=== PATIENT | female | born 1990 | race Hispanic/Latino ===

== ENCOUNTER 2019-07-06 18:49 | Emergency (ER) | payer SELFPAY ==
--- NOTE | 2019-07-06 20:00 | RAD REPORT ---
EXAM DESCRIPTION: RAD - Ankle Left 3 View - 07/06/2019 7:48 pm CLINICAL HISTORY: PAIN COMPARISON: <Comparisons> FINDINGS: Soft tissue swelling is seen adjacent to the lateral malleolus. No acute fracture or dislo cation seen.
--- NOTE | 2019-07-06 20:35 | ER ---
Nurse's Notes [facility] Name: Jalyn Carver Age: 29 yrs Sex: Female : 1990 Arrival Date: 07/06/2019 Time: 18:50 Bed 30 Private MD: Diagnosis: Sprain of ankle Presentation: 07/06 19:03 Presenting complaint: Rolled left ankle 30 mins ZIPPER TRIMMER, c/o pain 10/10. Unable to bear hb weight. Transition of care: patient was not received from another setting of care. Onset of symptoms was July 06, 2019. Risk Assessment: Do you want to hurt yourself or someone else? Patient reports no desire to harm self or others. Initial Sepsis Screen: Does the patient meet any 2 criteria? No. Patient's initial sepsis screen is negative. Does the patient have a suspected source of infection? No. Patient's initial sepsis screen is negative. Care prior to arrival: None. 19:03 Method Of Arrival: Wheelchair hb 19:03 Acuity: ABDIEL 4 hb Triage Assessment: 20:57 General: Appears in no apparent distress. Behavior is calm, cooperative, appropriate jv1 for age. Pain: Complains of pain in left foot Pain currently is 5 out of 10 on a pain scale. Quality of pain is described as aching. EENT: No deficits noted. Neuro: No deficits noted. Cardiovascular: No deficits noted. Denies chest pain. Respiratory: Airway is patent Respiratory effort is even, unlabored, Breath sounds are clear. GI: No signs and/or symptoms were reported involving the gastrointestinal system. : No signs and/or symptoms were reported regarding the genitourinary system. Derm: No signs and/or symptoms reported regarding the dermatologic system. Musculoskeletal: Capillary refill < 3 seconds, Tenderness present in left foot. 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 - Social history:: Smoking status: Patient/guardian denies using tobacco. - Ebola Screening: : No symptoms or risks identified at this time. Screenin:55 Abuse screen: Denies threats or abuse. Nutritional screening: No deficits noted. jv1 Tuberculosis screening: No symptoms or risk factors identified. Fall Risk Fall in past 12 months (25 points). Sepsis Screening:. Exposure risk/Travel Screening:. Assessment: 20:00 General: Appears in no apparent distress. Behavior is calm, cooperative, appropriate jv1 for age. Pain: Complains of pain in left foot Pain currently is 5 out of 10 on a pain scale. Quality of pain is described as aching. Neuro: No deficits noted. Cardiovascular: No deficits noted. Denies chest pain. Respiratory: Airway is patent Breath sounds are clear bilaterally. GI: Bowel sounds present X 4 quads. : No signs and/or symptoms were reported regarding the genitourinary system. EENT: No signs and/or symptoms were reported regarding the EENT system. Derm: No signs and/or symptoms reported regarding the dermatologic system. Musculoskeletal: Reports pain in left foot. Injury Description: sprain on left foot. 20:30 Reassessment: Patient appears in no apparent distress at this time. jv1 21:00 Reassessment: Patient appears in no apparent distress at this time. No changes from jv1 previously documented assessment. Patient is alert, oriented x 3, equal unlabored respirations, skin warm/dry/pink. Vital Signs: 19:05 BP 113 / 73; Pulse 87; Resp 16; Temp 97.9; Pulse Ox 100% on R/A; Weight 68.04 kg; hb Height 5 ft. 1 in. (154.94 cm); Pain 10/10; 20:00 BP 115 / 80; Pulse 88; Resp 16; Temp 98; Pulse Ox 100% ; Pain 0/10; jv1 21:00 BP 120 / 75; Pulse 89; Resp 18; Temp 98.1; Pulse Ox 100% ; jv1 19:05 Body Mass Index 28.34 (68.04 kg, 154.94 cm) hb ED Course: 18:50 Patient arrived in ED. as 19:04 Triage completed. hb 19:05 Arm band placed on. hb 19:48 Ankle Left 3 View XRAY In Process Unspecified. EDMS 19:50 Ottoniel Robert MD is Attending Physician. gs 20:33 Russell Duncan MD is Referral Physician. gs 20:55 Patient has correct armband on for positive identification. Fall risk band placed. Call jv1 light in reach. Side rails up X 1. Adult w/ patient. 21:00 Crutch training done. jv1 21:06 No provider procedures requiring assistance completed. Patient did not have IV access jv1 during this emergency room visit. Administered Medications: No medications were administered Outcome: 20:34 Discharge ordered by . janett 21:00 Discharge instructions given to patient, significant other, Instructed on discharge jv1 instructions, follow up and referral plans. crutch walking, Demonstrated understanding of instructions, follow-up care, crutch walking. 21:06 Discharged to home ambulatory, with crutches, instructed on how to use the crutches jv1 21:06 Condition: stable 21:19 Patient left the ED. jv1 Signatures: Dispatcher [employer] Ashly Gregg Heather, RN RN Ottoniel Toney MD MD gs Vicente, Joyce, RN RN jv1
--- NOTE | 2019-07-06 20:35 | EDPHYS ---
Physician Documentation [facility] Name: Jalyn Carver Age: 29 yrs Sex: Female : 1990 Arrival Date: 07/06/2019 Time: 18:50 Bed 30 Private MD: ED Physician Ottoniel Robert HPI: 07/06 20:23 This 29 yrs old Female presents to ER via Wheelchair with complaints of Ankle gs Injury. 20:23 The patient presents with an injury. The complaints affect the left ankle. Onset: The gs symptoms/episode began/occurred just prior to arrival. Context: The problem was sustained at home, resulted from a mis-step by the patient, on a floor edge, The mechanism of injury involved eversion of the affected ankle. The patient can partially bear weight on the affected extremity. Associated signs and symptoms: Pertinent negatives: numbness, weakness. Modifying factors: the symptoms are aggravated by weight bearing, movement. Severity of symptoms: At their worst the symptoms were severe, in the emergency department the symptoms are unchanged. The patient has not experienced similar symptoms in the past. 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 - Social history:: Smoking status: Patient/guardian denies using tobacco. - Ebola Screening: : No symptoms or risks identified at this time. ROS: 20:23 All other systems are negative. gs Exam: 20:23 Head/Face: Normocephalic, atraumatic. ENT: Nares patent. No nasal discharge, no gs septal abnormalities noted. Tympanic membranes are normal and external auditory canals are clear. Oropharynx with no redness, swelling, or masses, exudates, or evidence of obstruction, uvula midline. Mucous membranes moist. Neck: Trachea midline, no thyromegaly or masses palpated, and no cervical lymphadenopathy. Supple, full range of motion without nuchal rigidity, or vertebral point tenderness. No Meningismus. Cardiovascular: Regular rate and rhythm with a normal S1 and S2. No gallops, murmurs, or rubs. Normal PMI, no JVD. No pulse deficits. Respiratory: Lungs have equal breath sounds bilaterally, clear to auscultation and percussion. No rales, rhonchi or wheezes noted. No increased work of breathing, no retractions or nasal flaring. Abdomen/GI: Soft, non-tender, with normal bowel sounds. No distension or tympany. No guarding or rebound. No evidence of tenderness throughout. Back: No spinal tenderness. No costovertebral tenderness. Full range of motion. Skin: Warm, dry with normal turgor. Normal color with no rashes, no lesions, and no evidence of cellulitis. Neuro: Awake and alert, GCS 15, oriented to person, place, time, and situation. Cranial nerves II-XII grossly intact. Motor strength 5/5 in all extremities. Sensory grossly intact. Cerebellar exam normal. Normal gait. 20:23 Constitutional: The patient appears alert, awake. 20:23 Musculoskeletal/extremity: Pulses: are normal with no appreciated deficits, Sensation intact. Joints: pain at rest, painful range of motion, swelling, tenderness. Vital Signs: 19:05 BP 113 / 73; Pulse 87; Resp 16; Temp 97.9; Pulse Ox 100% on R/A; Weight 68.04 kg; hb Height 5 ft. 1 in. (154.94 cm); Pain 10/10; 20:00 BP 115 / 80; Pulse 88; Resp 16; Temp 98; Pulse Ox 100% ; Pain 0/10; jv1 21:00 BP 120 / 75; Pulse 89; Resp 18; Temp 98.1; Pulse Ox 100% ; jv1 19:05 Body Mass Index 28.34 (68.04 kg, 154.94 cm) hb MDM: 20:04 Patient medically screened. gs 20:23 Differential diagnosis: fracture, sprain. Data reviewed: vital signs, nurses notes, radiologic studies. Response to treatment: the patient's symptoms have mildly improved after treatment, and as a result, I will discharge patient. 07/06 19:03 Order name: Ankle Left 3 View XRAY; Complete Time: 20:04 hb Administered Medications: No medications were administered Disposition: 07/06/19 20:34 Discharged to Home. Impression: Sprain of ankle. - Condition is Stable. - Discharge Instructions: Ankle Sprain, Form - Return To Work. - Medication Reconciliation Form, Thank You Letter, Antibiotic Education, Prescription Opioid Use, Work release form form. - Follow up: Russell Duncan MD; When: 2 - 3 days; Reason: Re-evaluation by your physician. Signatures: Dispatcher [employer] EDMS Jannet Santiago, RN RN Ottoniel Robert MD MD Barbara De Leon RN RN jv1 Corrections: (The following items were deleted from the chart) 21:19 20:34 07/06/2019 20:34 Discharged to Home. Impression: Sprain of ankle. Condition is jv1 Stable. Forms are Medication Reconciliation Form, Thank You Letter, Antibiotic Education, Prescription Opioid Use. Follow up: Dr. Russell Duncan; When: 2 - 3 days; Reason: Re-evaluation by your physician. gs
[2019-07-06 22:32] VITALS: O2SAT 100
[2019-07-06 22:36] VITALS: BP 120/75; TEMP 98.1
== END 2019-07-06 21:19 | disposition home or self-care (01) ==
LOC: ER 18:49
DX: S93.402A Sprain of unspecified ligament of left ankle, initial encounter (principal); X58.XXXA Exposure to other specified factors, initial encounter; Y93.9 Activity, unspecified; Y92.009 Unspecified place in unspecified non-institutional (private) residence as the place of occurrence of the external cause
CPT/HCPCS: 99283

== ENCOUNTER 2020-04-29 14:19 | Emergency (ER) | payer SELFPAY ==
--- OUTSIDE RECORDS SUMMARY | 2020-04-29 14:41 | XMS REPORT | Continuity of Care Document ---
:1990 Author Organization [facility] t Address [address] [place] [address] Care Team Providers Name Role Phone Unavailable Unavailable Unavailable Problems Condition Condition Condition Status Onset Resolution Last Treating Co mments Source Name Details Category Date Date Treatment Clinician Date Sprain of Sprain of Diagnosis Active [facility] anterior [facility] talofibula talofibula Me moria r ligament r ligament l of left of left [facility] ankle, ankle, ent initial initial Clinics encounter encounter Acute left Acute left Diagnosis Active [facility] ankle pain ankle pain Shae [facility] ent Clinics Allergies, Adverse Reactions, Alerts This patient has no known allergies or adverse reactions. Medications Ordered Filled Start Stop Current Ordering Indication Dosage Frequency Signature Comments Components Source Medication Medication Date Date Medication? Clinician (SIG) Name Name ibuprofen ibuprofen Yes Russell not [facility] defined [facility] Clinics Procedures This patient has no known procedures. Encounters Start End Encounter Admission Attending Care Care Encounter Source Date/Time Date/Time Type Type Clinicians Facility Department ID 2019-07-12 2019-07-12 Out[facility] [place] [id number] [facility] [address] 08:30:00 08:30:00 [facility] Clinics Results This patient has no known results.
--- NOTE | 2020-04-29 15:28 | RAD REPORT ---
EXAM DESCRIPTION: CT - Head Brain Wo Cont - 04/29/2020 3:21 pm CLINICAL HISTORY: SANCHEZ'S PALSY Headache, drowsiness COMPARISON: No comparisons TECHNIQUE: All CT scans are performed using dose optimization technique as appropriate and may inclu de automated exposure control or mA/KV adjustment according to patient size. FINDINGS: No intracranial hemorrhage, hydrocephalus or extra-axial fluid collection.No areas of brai n edema or evidence of midline shift. The paranasal sinuses and mastoids are clear. The calvarium is intact. IMPRESSION: No acute intracranial abnormality.
--- NOTE | 2020-04-29 16:12 | ER ---
Nurse's Notes [facility] Name: Jalyn Carver Age: 30 yrs Sex: Female : 1990 Arrival Date: 04/29/2020 Time: 14:21 Bed 16 Private MD: Diagnosis: Alexis's palsy Presentation: 04/29 14:26 Chief complaint: Patient states: Started Wednesday, numbness and drooping on R side of ca1 face. R eye tearing and not closing all the way. Pain on R ear. Denies dysphagia. History Alexis's Palsy 4 years ago. Coronavirus screen: Client denies travel out of the [place] in the last 14 days. At this time, the client does not indicate any symptoms associated with coronavirus-19. Ebola Screen: Patient negative for fever greater than or equal to 101.5 degrees Fahrenheit, and additional compatible Ebola Virus Disease symptoms Patient denies exposure to infectious person. Patient denies travel to an Ebola-affected area in the 21 days before illness onset. No symptoms or risks identified at this time. Initial Sepsis Screen: Does the patient meet any 2 criteria? No. Patient's initial sepsis screen is negative. Does the patient have a suspected source of infection? No. Patient's initial sepsis screen is negative. Risk Assessment: Do you want to hurt yourself or someone else? Patient reports no desire to harm self or others. Onset of symptoms was April 29, 2020. 14:26 Method Of Arrival: Ambulatory ca1 14:26 Acuity: ABDIEL 4 ca1 Triage Assessment: 14:30 General: Appears in no apparent distress. comfortable, Behavior is calm, cooperative, ca1 appropriate for age. Pain: Denies pain. Neuro: Level of Consciousness is awake, alert, obeys commands, Oriented to person, place, time, situation, Associate Director Regulatory Affairs are equal bilaterally Moves all extremities. Gait is steady, Speech is normal, Facial droop on right, Pupils are PERRLA. 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 - Social history:: Smoking status: Patient denies any tobacco usage or history of. Screenin:44 Abuse screen: Denies threats or abuse. Nutritional screening: No deficits noted. tw2 Tuberculosis screening: No symptoms or risk factors identified. Fall Risk None identified. Assessment: 15:53 General: Appears in no apparent distress. well groomed, Behavior is calm, cooperative, tw2 appropriate for age. Pain: Denies pain. Neuro: Reports numbness and droop on right side of face. 15:53 Cardiovascular: Patient's skin is warm and dry. Respiratory: Airway is patent tw2 Respiratory effort is even, unlabored, Respiratory pattern is regular, symmetrical. GI: No signs and/or symptoms were reported involving the gastrointestinal system. : No signs and/or symptoms were reported regarding the genitourinary system. EENT: No signs and/or symptoms were reported regarding the EENT system. Derm: No signs and/or symptoms reported regarding the dermatologic system. Musculoskeletal: Range of motion: intact in all extremities. 16:44 Reassessment: Patient appears in no apparent distress at this time. No changes from tw2 previously documented assessment. Patient and/or family updated on plan of care and expected duration. Pain level reassessed. Patient is alert, oriented x 3, equal unlabored respirations, skin warm/dry/pink. Vital Signs: 14:26 BP 107 / 75; Pulse 80; Resp 16 S; Temp 98.4(O); Pulse Ox 99% on R/A; Weight 73.94 kg ca1 (R); Height 5 ft. 1 in. (154.94 cm) (R); Pain 0/10; 16:40 BP 118 / 70; Pulse 72; Resp 16; Pulse Ox 99% on R/A; tw2 14:26 Body Mass Index 30.80 (73.94 kg, 154.94 cm) ca1 ED Course: 14:21 Patient arrived in ED. ag5 14:29 Triage completed. ca1 14:30 Arm band placed on right wrist. ca1 15:21 CT Head Brain wo Cont In Process Unspecified. EDMS 15:54 Janell Obrien, VIRI is Primary Nurse. tw2 15:54 Bed in low position. Call light in reach. Pulse ox on. NIBP on. tw2 16:01 Matthew Gomez PA is PHCP. jr8 16:01 Luis Alberto Hurst MD is Attending Physician. jr8 16:11 Hayden Carias MD is Referral Physician. jr8 16:44 No provider procedures requiring assistance completed. Patient did not have IV access tw2 during this emergency room visit. Administered Medications: 16:35 Drug: predniSONE 60 mg Route: PO; tw2 Outcome: 16:11 Discharge ordered by MD. jr8 16:44 Patient left the ED. tw2 16:44 Discharged to home ambulatory. tw2 16:44 Condition: stable 16:44 Discharge instructions given to patient, Instructed on discharge instructions, follow up and referral plans. medication usage, Demonstrated understanding of instructions, follow-up care, medications, Prescriptions given X 1. Signatures: Dispatcher [employer] EDMS Matthew Gomez PA PA jr8 Janell Obrien RN RN tw2 Crystal Knight RN RN ca1 Christophe Juarez ag5 Corrections: (The following items were deleted from the chart) 17:47 15:53 Neuro: Reports numbness and droop on . tw2 tw2 19:15 17:46 Cardiovascular: Patient's skin is warm and dry. tw2 tw2 19:15 17:46 Respiratory: Airway is patent Respiratory effort is even, unlabored, Respiratory tw2 pattern is regular, symmetrical, tw2 19:15 17:46 GI: No signs and/or symptoms were reported involving the gastrointestinal system. tw2 tw2 19:15 17:46 : No signs and/or symptoms were reported regarding the genitourinary system. tw2tw2 19:15 17:46 EENT: No signs and/or symptoms were reported regarding the EENT system. tw2 tw2 19:15 17:46 Derm: No signs and/or symptoms reported regarding the dermatologic system. tw2 tw2 19:15 17:46 Musculoskeletal: Range of motion: intact in all extremities, tw2 tw2
--- NOTE | 2020-04-29 16:12 | EDPHYS ---
Physician Documentation [facility] Name: Jalyn Carver Age: 30 yrs Sex: Female : 1990 Arrival Date: 04/29/2020 Time: 14:21 Bed 16 Private MD: ED Physician Luis Alberto Hurst HPI: 04/29 16:27 This 30 yrs old Female presents to ER via Ambulatory with complaints of jr8 Numbness Of Face. 16:27 The patient presents to the emergency department with weakness of the right side of the jr8 face, paresthesias of the right side of the face. Onset: The symptoms/episode began/occurred gradually, 1 week(s) ago. Context: occurred at home. Associated signs and symptoms: The patient has no apparent associated signs or symptoms. Severity of symptoms: At their worst the symptoms were mild in the emergency department the symptoms are unchanged. Patient's baseline: Neuro: alert and fully oriented, Motor: no deficits, Ambulation: walks without assistance, Speech: normal. The patient has experienced a previous episode. The patient has not recently seen a physician. 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 Stated that she started with ear pain and odd feeling to right side of face that has now progressed to right facial droop and tearing of right eye. Feels that she has another Alexis's palsy again . [employer]: 14:30 LMP 04/24/2020 ca1 Historical: - Allergies: 14:30 No Known Allergies; ca1 - Home Meds: 14:30 None [Active]; ca1 - PMHx: 14:30 None; ca1 - PSHx: 14:30 ; ca1 - Immunization history:: Adult Immunizations up to date. - Social history:: Smoking status: Patient denies any tobacco usage or history of. ROS: 16:27 Eyes: Negative for injury, pain, redness, and discharge, ENT: Negative for injury, jr8 pain, and discharge, Neck: Negative for injury, pain, and swelling, Cardiovascular: Negative for chest pain, palpitations, and edema, Respiratory: Negative for shortness of breath, cough, wheezing, and pleuritic chest pain, Abdomen/GI: Negative for abdominal pain, nausea, vomiting, diarrhea, and constipation, Back: Negative for injury and pain, MS/Extremity: Negative for injury and deformity, Skin: Negative for injury, rash, and discoloration. 16:27 Neuro: Positive for numbness, weakness. Exam: 16:27 Eyes: Pupils equal round and reactive to light, extra-ocular motions intact. Lids and jr8 lashes normal. Conjunctiva and sclera are non-icteric and not injected. Cornea within normal limits. Periorbital areas with no swelling, redness, or edema. ENT: Nares patent. No nasal discharge, no septal abnormalities noted. Tympanic membranes are normal and external auditory canals are clear. Oropharynx with no redness, swelling, or masses, exudates, or evidence of obstruction, uvula midline. Mucous membranes moist. Neck: Trachea midline, no thyromegaly or masses palpated, and no cervical lymphadenopathy. Supple, full range of motion without nuchal rigidity, or vertebral point tenderness. No Meningismus. Cardiovascular: Regular rate and rhythm with a normal S1 and S2. No gallops, murmurs, or rubs. Normal PMI, no JVD. No pulse deficits. Respiratory: Lungs have equal breath sounds bilaterally, clear to auscultation and percussion. No rales, rhonchi or wheezes noted. No increased work of breathing, no retractions or nasal flaring. Abdomen/GI: Soft, non-tender, with normal bowel sounds. No distension or tympany. No guarding or rebound. No evidence of tenderness throughout. Back: No spinal tenderness. No costovertebral tenderness. Full range of motion. Skin: Warm, dry with normal turgor. Normal color with no rashes, no lesions, and no evidence of cellulitis. MS/ Extremity: Pulses equal, no cyanosis. Neurovascular intact. Full, normal range of motion. 16:27 Neuro: Orientation: to person, place, time \T\ situation. Mentation: is normal, Memory: is normal, immediate memory is intact, recent memory is intact, remote memory is intact, Cranial nerves: CN I not tested, normal except CN 7 palsy present, visual iyer are intact. extraocular movements are intact, facial droop noted on right, with forehead involved. Nystagmus is absent. Speech is clear and appropriate. Tongue strength is normal, Cerebellar function: normal finger to nose testing, heel to thacker testing is normal, Motor: moves all fours, strength is 5/5 in all extremities, Sensation: no obvious gross deficits, Gait: not tested. seizure activity, is not displayed by the patient, Abnormal movements: there are no abnormal movements. Vital Signs: 14:26 BP 107 / 75; Pulse 80; Resp 16 S; Temp 98.4(O); Pulse Ox 99% on R/A; Weight 73.94 kg ca1 (R); Height 5 ft. 1 in. (154.94 cm) (R); Pain 0/10; 16:40 BP 118 / 70; Pulse 72; Resp 16; Pulse Ox 99% on R/A; tw2 14:26 Body Mass Index 30.80 (73.94 kg, 154.94 cm) ca1 MDM: 16:01 Patient medically screened. jr8 16:10 Data reviewed: vital signs, nurses notes, radiologic studies, CT scan, and as a result, jr8 I will discharge patient. Data interpreted: Pulse oximetry: on room air is 99 %. Interpretation: normal. Counseling: I had a detailed discussion with the patient and/or guardian regarding: the historical points, exam findings, and any diagnostic results supporting the discharge/admit diagnosis, radiology results, the need for outpatient follow up, a neurologist, to return to the emergency department if symptoms worsen or persist or if there are any questions or concerns that arise at home. 04/29 14:32 Order name: CT Head Brain wo Cont; Complete Time: 16:01 ca1 Administered Medications: 16:35 Drug: predniSONE 60 mg Route: PO; tw2 Disposition: 17:32 Co-signature as Attending Physician, Luis Alberto Hurst MD. rn Disposition: 04/29/20 16:11 Discharged to Home. Impression: Alexis's palsy. - Condition is Stable. - Discharge Instructions: Alexis Palsy, Adult. - Prescriptions for Prednisone 20 mg Oral Tablet - take 3 tablets by ORAL route once daily for 7 days; 21 tablet. - Medication Reconciliation Form, Thank You Letter, Antibiotic Education, Prescription Opioid Use form. - Follow up: Hayden Carias MD; When: 5 - 6 days; Reason: Recheck today's complaints, Continuance of care, Re-evaluation by your physician. - Problem is new. - Symptoms have improved. Signatures: Dispatcher [employer] EDMS Luis Alberto Hurst MD MD rn Roszak, Josh, PA PA jr8 Janell Obrien RN RN tw2 Crystal Knight RN RN ca1 Corrections: (The following items were deleted from the chart) 16:44 16:11 04/29/2020 16:11 Discharged to Home. Impression: Alexis's palsy. Condition is tw2 Stable. Forms are Medication Reconciliation Form, Thank You Letter, Antibiotic Education, Prescription Opioid Use. Follow up: Hayden Carias; When: 5 - 6 days; Reason: Recheck today's complaints, Continuance of care, Re-evaluation by your physician. Problem is new. Symptoms have improved. jr8
[2020-04-29] MEDS ORDERED: predniSONE 20 MG TAB ONE (16:24)
[2020-04-29 17:09] VITALS: TEMP 98.4; O2SAT 99
[2020-04-29 17:10] VITALS: BP 118/70
== END 2020-04-29 16:44 | disposition home or self-care (01) ==
LOC: ER 14:19
DX: G51.0 Bell's palsy (principal)
CPT/HCPCS: 70450; 99284; J7512

== ENCOUNTER 2020-11-28 08:05 | Emergency (ER) | payer SELFPAY ==
--- OUTSIDE RECORDS SUMMARY | 2020-11-28 08:08 | XMS REPORT | Continuity of Care Document ---
:1990 Author Organization [facility] t Address [address] [place] [address] Care Team Providers Name Role Phone Unavailable Unavailable Unavailable Problems Condition Condition Condition Status Onset Resolution Last Treating Co mments Source Name Details Category Date Date Treatment Clinician Date Sprain of Sprain of Diagnosis Active [facility] talofibula talofibula Me moria r ligament r ligament l [facility] initial initial Clinics encounter encounter Acute left Acute left Diagnosis Active [facility] ankle pain ankle pain Shae kes - [facility] ent Clinics Allergies, Adverse Reactions, Alerts This patient has no known allergies or adverse reactions. Medications Ordered Filled Start Stop Current Ordering Indication Dosage Frequency Signature Comments Components Source Medication Medication Date Date Medication? Clinician (SIG) Name Name ibuprofen ibuprofen Yes Russell not [facility] Clinics Procedures This patient has no known procedures. Encounters Start End Encounter Admission Attending Care Care Encounter Source Date/Time Date/Time Type Type Clinicians Facility Department ID 2019-07-12 2019-07-12 [facility] [id number] [facility] [address] 08:30:00 08:30:00 [facility] Clinics Results This patient has no known results.
--- NOTE | 2020-11-28 08:32 | EDPHYS ---
Physician Documentation [facility] Name: Jalyn Carver Age: 30 yrs Sex: Female : 1990 Arrival Date: 11/28/2020 Time: 08:06 Bed 5 Private MD: ED Physician Hussein Hoyt HPI: 11/28 08:28 This 30 yrs old Female presents to ER via Ambulatory with complaints of Boil. tw4 08:28 The patient presents with cellulitis of the clitoris. Description: The affected area is tw4 small, poorly defined. Onset: The symptoms/episode began/occurred yesterday. Possible cause(s): unknown. Associated signs and symptoms: The patient has no apparent associated signs or symptoms. Modifying factors: the symptoms are alleviated by nothing, the symptoms are aggravated by movement. The patient has not experienced similar symptoms in the past. Historical: - Allergies: 08:12 No Known Allergies; ss - Home Meds: 08:12 None [Active]; ss - PMHx: 08:12 None; ss - PSHx: 08:12 ; ss - Immunization history:: Adult Immunizations up to date. - Social history:: Smoking status: Patient denies any tobacco usage or history of. ROS: 08:28 Constitutional: Negative for fever, chills, and weight loss, Eyes: Negative for injury, tw4 pain, redness, and discharge, Cardiovascular: Negative for chest pain, palpitations, and edema, Respiratory: Negative for shortness of breath, cough, wheezing, and pleuritic chest pain, Abdomen/GI: Negative for abdominal pain, nausea, vomiting, diarrhea, and constipation. 08:28 MS/Extremity: Negative for injury and deformity, Skin: Negative for injury, rash, and discoloration, Neuro: Negative for headache, weakness, numbness, tingling, and seizure. 08:28 : Positive for vaginal pain and lesions. Exam: 08:28 Constitutional: This is a well developed, well nourished patient who is awake, alert, tw4 and in no acute distress. Head/Face: Normocephalic, atraumatic. Chest/axilla: Normal chest wall appearance and motion. Nontender with no deformity. No lesions are appreciated. Cardiovascular: Regular rate and rhythm with a normal S1 and S2. No gallops, murmurs, or rubs. Normal PMI, no JVD. No pulse deficits. Respiratory: Lungs have equal breath sounds bilaterally, clear to auscultation and percussion. No rales, rhonchi or wheezes noted. No increased work of breathing, no retractions or nasal flaring. Abdomen/GI: Soft, non-tender, with normal bowel sounds. No distension or tympany. No guarding or rebound. No evidence of tenderness throughout. 08:28 Skin: rash can be described as vesicular, on the clitoris. Vital Signs: 08:11 Resp 14; Weight 74.39 kg; Height 5 ft. 1 in. (154.94 cm); Pain 7/10; ss 08:16 BP 98 / 53; Pulse 70; Temp 97.2; Pulse Ox 100% ; sv 08:11 Body Mass Index 30.99 (74.39 kg, 154.94 cm) MDM: 08:20 Patient medically screened. tw4 08:28 Differential diagnosis: abscess, cellulitis. Data reviewed: vital signs, nurses notes. tw4 Data interpreted: Pulse oximetry: Interpretation: normal. Counseling: I had a detailed discussion with the patient and/or guardian regarding: the historical points, exam findings, and any diagnostic results supporting the discharge/admit diagnosis. Special discussion: I discussed with the patient/guardian in detail that at this point there is no indication for admission to the hospital. It is understood, however, that if the symptoms persist or worsen the patient needs to return immediately for re-evaluation. Administered Medications: 08:40 Drug: Motrin 800 mg Route: PO; 08:40 Follow up: Response: Medication administered at discharge. 08:40 Drug: Cleocin (clindamycin) 150 mg Route: PO; 08:40 Follow up: Response: Medication administered at discharge. Disposition: 11/28/20 08:31 Discharged to Home. Impression: cellulits vulva. - Condition is Stable. - Discharge Instructions: Cellulitis, Adult. - Prescriptions for Cleocin 150 mg Oral Capsule - take 1 capsule by ORAL route every 6 hours for 10 days; 40 capsule. Ibuprofen 800 mg Oral Tablet - take 1 tablet by ORAL route every 12 hours As needed take with food; 20 tablet. - Medication Reconciliation Form, Thank You Letter, Antibiotic Education, Prescription Opioid Use, Work release form form. - Follow up: Private Physician; When: Upon discharge from the Emergency Department; Reason: Recheck today's complaints, Continuance of care, Re-evaluation by your physician. - Problem is new. - Symptoms are unchanged. Signatures: Ana María Griffith, RN RN Hussein Moreira MD MD tw4 Corrections: (The following items were deleted from the chart) 08:42 08:31 11/28/2020 08:31 Discharged to Home. Impression: cellulits vulva. Condition is ss Stable. Forms are Medication Reconciliation Form, Thank You Letter, Antibiotic Education, Prescription Opioid Use. Follow up: Private Physician; When: Upon discharge from the Emergency Department; Reason: Recheck today's complaints, Continuance of care, Re-evaluation by your physician. Problem is new. Symptoms are unchanged. tw4
--- NOTE | 2020-11-28 08:32 | ER ---
Nurse's Notes [facility] Name: Jalyn Carver Age: 30 yrs Sex: Female : 1990 Arrival Date: 11/28/2020 Time: 08:06 Bed 5 Private MD: Diagnosis: cellulits vulva Presentation: 11/28 08:11 Chief complaint: Patient states: possible vaginal abscess(s) that began yesterday. ss Coronavirus screen: Client denies travel out of the [place] in the last 14 days. Ebola Screen: Patient denies exposure to infectious person. Patient denies travel to an Ebola-affected area in the 21 days before illness onset. Initial Sepsis Screen: Does the patient meet any 2 criteria? No. Patient's initial sepsis screen is negative. Does the patient have a suspected source of infection? No. Patient's initial sepsis screen is negative. Risk Assessment: Do you want to hurt yourself or someone else? Patient reports no desire to harm self or others. Onset of symptoms was November 27, 2020. 08:11 Method Of Arrival: Ambulatory ss 08:11 Acuity: ABDIEL 4 ss Historical: - Allergies: 08:12 No Known Allergies; ss - Home Meds: 08:12 None [Active]; ss - PMHx: 08:12 None; ss - PSHx: 08:12 ; ss - Immunization history:: Adult Immunizations up to date. - Social history:: Smoking status: Patient denies any tobacco usage or history of. Screenin:11 Abuse screen: Denies threats or abuse. Denies injuries from another. Nutritional sv screening: No deficits noted. Tuberculosis screening: No symptoms or risk factors identified. Fall Risk None identified. Assessment: 08:28 General: Appears in no apparent distress. comfortable, Behavior is calm, cooperative. ss Pain: Complains of pain in mons pubis Pain currently is 7 out of 10 on a pain scale. Quality of pain is described as tender, Pain began 1 day ago. Is continuous. Neuro: Level of Consciousness is awake, alert, obeys commands, Oriented to person, place, time, situation. Respiratory: Airway is patent Respiratory effort is even, unlabored, Respiratory pattern is regular, symmetrical. GI: Patient currently denies abdominal pain, diarrhea, nausea, vomiting. : no obvious abscess or swelling is observed. Reports bumps and pain to pubic area that began yesterday, more painful today. Denies burning with urination, urinary frequency. EENT: Nares are clear Oral mucosa is moist. Throat is clear. Derm: Skin is pink, warm \T\ dry. normal. Musculoskeletal: Circulation, motion, and sensation intact. Range of motion: intact in all extremities, Swelling absent. 08:41 Reassessment: Patient appears in no apparent distress at this time. No changes from previously documented assessment. Patient and/or family updated on plan of care and expected duration. Pain level reassessed. Patient is alert, oriented x 3, equal unlabored respirations, skin warm/dry/pink. Vital Signs: 08:11 Resp 14; Weight 74.39 kg; Height 5 ft. 1 in. (154.94 cm); Pain 7/10; ss 08:16 BP 98 / 53; Pulse 70; Temp 97.2; Pulse Ox 100% ; sv 08:11 Body Mass Index 30.99 (74.39 kg, 154.94 cm) ED Course: 08:06 Patient arrived in ED. ds1 08:11 Stephanie Cantu, RN is Primary Nurse. sv 08:11 Arm band placed on Patient placed in an exam room, on a stretcher. sv 08:11 Patient has correct armband on for positive identification. Bed in low position. Call sv light in reach. Door closed. Head of bed elevated. 08:12 Triage completed. ss 08:20 Hussein Hoyt MD is Attending Physician. tw4 08:41 No provider procedures requiring assistance completed. Patient did not have IV access ss during this emergency room visit. Administered Medications: 08:40 Drug: Motrin 800 mg Route: PO; ss 08:40 Follow up: Response: Medication administered at discharge. ss 08:40 Drug: Cleocin (clindamycin) 150 mg Route: PO; ss 08:40 Follow up: Response: Medication administered at discharge. Outcome: 08:31 Discharge ordered by . tw4 08:41 Discharged to home ambulatory. 08:41 Condition: good 08:41 Discharge instructions given to patient, Instructed on discharge instructions, follow up and referral plans. medication usage, Demonstrated understanding of instructions, follow-up care, medications, Prescriptions given X 2. 08:42 Patient left the ED. ss Signatures: Stephanie Cantu, RN RN Angie Schultz ds1 Ana María Griffith RN RN ss Hussein Hoyt MD MD tw4
[2020-11-28 08:53] VITALS: BP 98/53; TEMP 97.2; O2SAT 100
[2020-11-28] MEDS ORDERED: IBUPROFEN 400 MG TAB ONE (08:53)
== END 2020-11-28 08:42 | disposition home or self-care (01) ==
LOC: ER 08:05
DX: N76.2 Acute vulvitis (principal)
CPT/HCPCS: 99283

== ENCOUNTER 2021-07-22 19:30 | Emergency (ER) | payer SELFPAY ==
[2021-07-22] MEDS ORDERED: BUPIVACAINE 0.5% PF 10 ML VIAL ONE (20:15)
[2021-07-22] MEDS ORDERED: AMOX/K CLAV 875 MG TAB ONE (21:24)
[2021-07-22] MEDS ORDERED: KETOROLAC 30 MG/ML INJ ONE (21:24)
--- NOTE | 2021-07-22 21:32 | ER ---
Nurse's Notes [facility] Name: Jalyn Carver Age: 31 yrs Sex: Female : 1990 Arrival Date: 07/22/2021 Time: 19:32 Bed DIS1 Private MD: Diagnosis: Dental Pain Presentation: 07/22 19:38 Chief complaint: Patient states: " I started having pain in the top left side of my ld1 mouth, my tooth is killing me." Pt reports trying to take tylenol to relieve the pain but she is not able to control the pain. Coronavirus screen: At this time, the client does not indicate any symptoms associated with coronavirus-19. Ebola Screen: No symptoms or risks identified at this time. Initial Sepsis Screen: Does the patient meet any 2 criteria? No. Patient's initial sepsis screen is negative. Does the patient have a suspected source of infection? No. Patient's initial sepsis screen is negative. Risk Assessment: Do you want to hurt yourself or someone else? Patient reports no desire to harm self or others. Onset of symptoms was July 22, 2021. 19:38 Method Of Arrival: Ambulatory ld1 19:38 Acuity: ABDIEL 4 ld1 Triage Assessment: 19:38 General: Appears in no apparent distress. uncomfortable, Behavior is calm, cooperative, ld1 appropriate for age. Pain: Complains of pain in left buccal mucosa Pain does not radiate. Pain currently is 8 out of 10 on a pain scale. Quality of pain is described as sharp, throbbing, Pain began 2-3 days ago. Is continuous. EENT: Reports pain in left buccal mucosa. Neuro: Level of Consciousness is awake, alert, obeys commands, Oriented to person, place, time, situation, Appropriate for age. Cardiovascular: Capillary refill < 3 seconds Patient's skin is warm and dry. Respiratory: Airway is patent Respiratory effort is even, unlabored, Respiratory pattern is regular, symmetrical. GI: Abdomen is round non-distended. : No signs and/or symptoms were reported regarding the genitourinary system. Derm: No signs and/or symptoms reported regarding the dermatologic system. Musculoskeletal: No signs and/or symptoms reported regarding the musculoskeletal system. Historical: - Allergies: 19:38 No Known Allergies; ld1 - Home Meds: 19:38 None [Active]; ld1 - PMHx: 19:38 None; ld1 - PSHx: 19:38 section; ld1 - Immunization history:: Adult Immunizations up to date, Client reports receiving the 2nd dose of the Covid vaccine. - Social history:: Smoking status: Patient denies any tobacco usage or history of. Patient/guardian denies using alcohol. Screenin:04 Abuse screen: Denies threats or abuse. Nutritional screening: No deficits noted. fu Tuberculosis screening: No symptoms or risk factors identified. Fall Risk None identified. Assessment: 20:01 General: Appears in no apparent distress. Behavior is calm, cooperative, appropriate fu for age, Denies fever, feeling ill, fatigue, chills. Pain: Complains of pain in mouth Pain does not radiate. Pain currently is 10 out of 10 on a pain scale. Neuro: Level of Consciousness is awake, alert, obeys commands, Oriented to person, place, time, situation, Moves all extremities. Gait is steady, Speech is normal, Facial symmetry appears normal. Cardiovascular:. Cardiovascular: Denies chest pain. Respiratory: Respiratory effort is even, unlabored, Respiratory pattern is regular. GI: No signs and/or symptoms were reported involving the gastrointestinal system. : No signs and/or symptoms were reported regarding the genitourinary system. 21:00 Reassessment: Patient and/or family updated on plan of care and expected duration. Pain fu level reassessed. Patient is alert, oriented x 3, equal unlabored respirations, skin warm/dry/pink. Patient states feeling better. Vital Signs: 19:38 BP 122 / 84; Pulse 73; Resp 18; Temp 98.1(TE); Pulse Ox 100% on R/A; Weight 73.94 kg; ld1 Height 5 ft. 1 in. (154.94 cm); Pain 8/10; 20:03 BP 114 / 72; Pulse 72; Resp 16; Temp 98.7(O); Pulse Ox 99% on R/A; Pain 10/10; fu 19:38 Body Mass Index 30.80 (73.94 kg, 154.94 cm) ld1 ED Course: 19:32 Patient arrived in ED. bp1 19:38 Triage completed. ld1 19:38 Arm band placed on right wrist. ld1 19:56 Terrell Lao, RN is Primary Nurse. fu 20: Dante Roberto PA is PHCP. [facility] 20:01 Julieta Eckert MD is Attending Physician. [facility] 20:04 Patient has correct armband on for positive identification. fu 21:55 No provider procedures requiring assistance completed. Patient did not have IV access ld1 during this emergency room visit. Administered Medications: 21:30 Drug: Ketorolac 30 mg Route: IM; Site: left deltoid; ld1 21:50 Follow up: Response: Pain is decreased fu 21:30 Drug: Augmentin (Amoxicillin-Clavulanate) 875 mg Route: PO; ld1 21:50 Follow up: Response: No adverse reaction fu 21:52 Drug: Marcaine (bupivacaine) (0.5 %) 10 ml {Note: Administered by Dante Roberto..} ld1 Volume: 10 ml; Route: Infiltration; Outcome: 21:31 Discharge ordered by MD. [facility] 21:55 Discharged to home ambulatory. ld1 21:55 Condition: stable 21:55 Discharge instructions given to patient, Instructed on discharge instructions, follow up and referral plans. medication usage, Demonstrated understanding of instructions, follow-up care, medications, Prescriptions given X 1. 21:56 Patient left the ED. ld1 Signatures: Dante Roberto PA PA Terrell Gates, RN Jalyn Bautista Lauren, RN RN ld1
--- NOTE | 2021-07-22 21:32 | EDPHYS ---
Physician Documentation [facility] Name: Jalyn Carver Age: 31 yrs Sex: Female : 1990 Arrival Date: 07/22/2021 Time: 19:32 Bed DIS1 Private MD: ED Physician Julieta Eckert HPI: 07/22 20:15 This 31 yrs old Female presents to ER via Ambulatory with complaints of jmm Toothache. 20:15 The patient presents with pain. Onset: The symptoms/episode began/occurred today. jmm Duration: The symptoms are continuous, and are steadily getting worse. Modifying factors: The symptoms are alleviated by nothing, the symptoms are aggravated by nothing. Associated signs and symptoms: Pertinent negatives: fever, pain. This this is a 31-year-old female with no chronic medical conditions presents emerged department with complaints of left upper molar pain which radiates into her cheek. Denies fever chills. Patient states she has had a dental abscess before on the right upper side.. Historical: - Allergies: 19:38 No Known Allergies; ld1 - Home Meds: 19:38 None [Active]; ld1 - PMHx: 19:38 None; ld1 - PSHx: 19:38 section; ld1 - Immunization history:: Adult Immunizations up to date, Client reports receiving the 2nd dose of the Covid vaccine. - Social history:: Smoking status: Patient denies any tobacco usage or history of. Patient/guardian denies using alcohol. ROS: 20:15 Constitutional: Positive for jmm 20:15 ENT: Positive for difficulty handling secretions. 20:15 All other systems are negative. Exam: 20:15 Constitutional: This is a well developed, well nourished patient who is awake, alert, jmm and in no acute distress. Head/Face: atraumatic. Eyes: EOMI, no conjunctival erythema appreciated 20:15 Neck: Trachea midline, Supple Chest/axilla: Normal chest wall appearance and motion. Cardiovascular: Regular rate and rhythm. No edema appreciated Respiratory: Normal respirations, no respiratory distress appreciated Abdomen/GI: Non distended, soft Back: Normal ROM Skin: General appearance color normal MS/ Extremity: Moves all extremities, no obvious deformities appreciated, no edema noted to the lower extremities Neuro: Awake and alert, normal gait Psych: Behavior is normal, Mood is normal, Patient is cooperative and pleasant 20:15 ENT: Dental exam: pain, that is mild, specifically in the upper left second bicuspid (#13), upper left first molar (#14) and upper left second molar (#15). Vital Signs: 19:38 BP 122 / 84; Pulse 73; Resp 18; Temp 98.1(TE); Pulse Ox 100% on R/A; Weight 73.94 kg; ld1 Height 5 ft. 1 in. (154.94 cm); Pain 8/10; 20:03 BP 114 / 72; Pulse 72; Resp 16; Temp 98.7(O); Pulse Ox 99% on R/A; Pain 10/10; fu 19:38 Body Mass Index 30.80 (73.94 kg, 154.94 cm) ld1 MDM: 20:[address] [facility] 21:11 Data reviewed: vital signs, nurses notes. Counseling: I had a detailed discussion with wallace the patient and/or guardian regarding: the historical points, exam findings, and any diagnostic results supporting the discharge/admit diagnosis, the need for outpatient follow up, to return to the emergency department if symptoms worsen or persist or if there are any questions or concerns that arise at home. Administered Medications: 21:30 Drug: Ketorolac 30 mg Route: IM; Site: left deltoid; ld1 21:50 Follow up: Response: Pain is decreased fu 21:30 Drug: Augmentin (Amoxicillin-Clavulanate) 875 mg Route: PO; ld1 21:50 Follow up: Response: No adverse reaction fu 21:52 Drug: Marcaine (bupivacaine) (0.5 %) 10 ml {Note: Administered by Dante Roberto..} ld1 Volume: 10 ml; Route: Infiltration; Disposition: 07/23 07:12 Co-signature as Attending Physician, Julieta Eckert MD I agree with the assessment and sp3 plan of care. Disposition Summary: 07/22/21 21:31 Discharge Ordered Location: Home [facility] Condition: Stable [facility] Diagnosis - Dental Pain [facility] Followup: [facility] - With: Private Physician - When: 2 - 3 days - Reason: Recheck today's complaints, Continuance of care, Re-evaluation by your physician Discharge Instructions: - Discharge Summary Sheet [facility] - Dental Pain [facility] Forms: - Medication Reconciliation Form [facility] - Thank You Letter [facility] - Antibiotic Education [facility] - Prescription Opioid Use [facility] Prescriptions: - Augmentin 875-125 mg Oral Tablet - take 1 tablet by ORAL route every 12 hours for 10 days; 20 tablet; Refills: 0, jmm Product Selection Permitted Signatures: Dante Roberto PA PA jmm Dibbern, Lauren, RN RN ld1 Julieta Eckert MD MD sp3 Terrell Lao RN fu
[2021-07-22 23:50] VITALS: BP 114/72; TEMP 98.7; O2SAT 99
--- OUTSIDE RECORDS SUMMARY | 2021-07-26 18:30 | XMS REPORT | Continuity of Care Document ---
:1990 Author Organization [facility] t Address [address] [place] [address] Care Team Providers Name Role Phone Unavailable Unavailable Unavailable Problems Condition Condition Condition Status Onset Resolution Last Treating Co mments Source Name Details Category Date Date Treatment Clinician Date Sprain of Sprain of Diagnosis Active [facility] - talofibula talofibula Me moria r ligament r ligament l of left of left [facility] ankle, ankle, ent initial initial Clinics encounter encounter Acute left Acute left Diagnosis Active [facility] ankle [facility] ankle pain Shae k[facility] - [facility] ent Clinics Allergies, Adverse Reactions, Alerts This patient has no known allergies or adverse reactions. Medications Ordered Filled Start Stop Current Ordering Indication Dosage Frequency Signature Comments Components Source Medication Medication Date Date Medication? Clinician (SIG) Name Name ibuprofen ibuprofen Yes Russell not [facility] Procedures This patient has no known procedures. Encounters Start End Encounter Admission Attending Care Care Encounter Source Date/Time Date/Time Type Type Clinicians Facility Department ID 2019-07-12 2019-07-12 [facility] [id number] 08:30:00 08:30:00 [facility] ent Clinics Results This patient has no known results.
== END 2021-07-22 21:56 | disposition home or self-care (01) ==
LOC: ER 19:30
DX: K08.89 Other specified disorders of teeth and supporting structures (principal)
CPT/HCPCS: 96372; 99283

== ENCOUNTER 2021-08-24 16:25 | Emergency (ER) | payer SELFPAY ==
--- OUTSIDE RECORDS SUMMARY | 2021-08-24 16:27 | XMS REPORT | Continuity of Care Document ---
:1990 Author Organization [facility] t Address [address] [place] [address] Care Team Providers Name Role Phone G_Pappas Attending Clinician Unavailable G_Pappas Admitting Clinician Unavailable Payers Payer Name Policy Type Policy Number Effective Date Expiration Date [facility] [id number] CHOICE (MEDICAID REPLACEMENT - HMO) Problems Condition Condition Condition Status Onset Resolution Last Treating Co mments Source Name Details Category Date Date Treatment Clinician Date Sprain of Sprain of Diagnosis Active [facility] anterior anterior [facility] - talofibula talofibula Me moria r ligament r ligament l [facility] initial initial Clinics encounter encounter Acute left Acute left Diagnosis Active [facility] ankle pain ankle pain Shae k[facility] ent Clinics Allergies, Adverse Reactions, Alerts This patient has no known allergies or adverse reactions. Medications Ordered Filled Start Stop Current Ordering Indication Dosage Frequency Signature Comments Components Source Medication Medication Date Date Medication? Clinician (SIG) Name Name ibuprofen ibuprofen Yes Russell not [facility] Procedures This patient has no known procedures. Encounters Start End Encounter Admission Attending Care Care Encounter Source Date/Time Date/Time Type Type Clinicians Facility Department ID 2020-11-28 2020-11-28 Outpatient G[id number] [place] 09:43:00 09:43:00 [id number] 2019-07-12 2019-07-12 [facility] [id number] 08:30:00 08:30:00 t [facility] ent Clinics Results This patient has no known results.
[2021-08-24 17:11] LABS: Absolute Lymphocytes (CBC) 1.7 K/uL (0.7-4.9); Basophils % 0.4 % (0-1.3); Hematocrit 40.3 % (36.0-45.0); Lymphocytes % 15.3 % (15.3-44.8); MPV 9.6 fL (7.6-11.3); RBC Red Blood Cell Count 4.77 M/uL (3.86-4.86)
[2021-08-24 17:16] LABS: Urine Blood 3+ (Negative); Urine Glucose Negative (Negative); Urine Protein 3+ (Negative); Urine Specific Gravity >=1.030 (1.005-1.030)
[2021-08-24 17:30] LABS: ALT/SGPT 32 U/L (12-78); AST/SGOT 25 U/L (15-37); Albumin 4.1 g/dL (3.4-5.0); Alkaline Phosphatase 66 U/L (45-117); BUN Blood Urea Nitrogen 7 mg/dL (7-18); Bicarbonate 25 mmol/L (21-32); Bilirubin Direct 0.2 mg/dL (0-0.2); Bilirubin Total 0.8 mg/dL (0.2-1.0); Glucose Level 96 mg/dL (74-106); Lipase 126 U/L (73-393); Potassium 3.6 mmol/L (3.5-5.1); Protein, Total 8.2 g/dL (6.4-8.2); Sodium Level 140 mmol/L (136-145)
[2021-08-24] MEDS ORDERED: ONDANSETRON 4 MG/2 ML VIAL ONE (18:12)
[2021-08-24] MEDS ORDERED: MORPHINE 2 MG/ML SYR ONE (18:12)
[2021-08-24] MEDS ORDERED: NA CHLORIDE 0.9% 1,000 ML ONE (18:13)
[2021-08-24 18:15] LABS: Urine Bacteria >50 /HPF (<20)
--- NOTE | 2021-08-24 19:14 | RAD REPORT ---
EXAM DESCRIPTION: CT - Abdomen Pelvis W Contrast - 08/24/2021 6:51 pm CLINICAL HISTORY: lower abdomen pain COMPARISON: No comparisons TECHNIQUE: Biphasic, helical CT imaging of the abdomen and pelvis was performed following 100 ml non -ionic IV contrast. No oral contrast administered. All CT scans are performed using dose optimization technique as appropriate and may include automated exposure control or mA/KV adjustment according to patient size. FINDINGS: No suspicious findings in the lung bases. The liver, spleen, and pancreas show no suspicious findings. Gallbladder and biliary tree are also wi thout suspicious finding. Renal function is symmetric. No pyelonephritis findings seen. No suspicious mass of the renal parench yma. Patient has no hydronephrosis but there is wall thickening and edema along the length of each ur eter. Trace amount of stranding is seen in the fatty tissues adjacent to the ureter. This extends to the renal pelvis on the right. Urinary bladder is too contracted to allow accurate assessment of any urinary bladder wall thickening or enhancement. No uterine or left ovarian finding. Left ovary has small follicles. Small follicles are present in th e right ovary. Additionally, there is a 5.5 centimeter thin-walled homogeneous cystic mass projecting superiorly and laterally from the right ovary. No septation, calcification or fat component. No gastric dilatation. Navarro of the stomach are accentuated due to the absence of any intraluminal co ntent. No gross gastric abnormality seen. Small bowel loops are unremarkable. Terminal ileum is noelle l. Appendix is not clearly defined. No secondary findings of acute appendicitis. No free air, free fluid or inflammatory stranding. No bulky lymphadenopathy or omental thickening. No hernia identified. No suspicious bony findings. IMPRESSION: Bilateral ureteritis findings are present. Urinary bladder is too contracted to allow al l accurate assessment of possible cystitis. No pyelonephritis findings can be confirmed at this time. No acute renal parenchymal process. A 5.5 centimeter exophytic right ovarian thin wall cyst present, extending superiorly and laterally f rom the right ovary into the upper pelvis. This can be monitored for involution. Cystadenoma is a pos sible etiology. Ovarian malignancy is not suspected. Follow-up pelvic ultrasound imaging in 4-6 cezar hs is recommended to evaluate for involution or growth.
--- NOTE | 2021-08-24 21:24 | ER ---
Nurse's Notes [facility] Name: Jalyn Carver Age: 31 yrs Sex: Female : 1990 Arrival Date: 08/24/2021 Time: 16:28 Bed 16 Private MD: Diagnosis: UTI/ Urinary tract infection, site not specified;Right lower quadrant abdominal swelling, mass and lump Presentation: 08/24 16:53 Chief complaint: Patient states: low abd pain and vomited twice, pain moves to back, no iw diarrhea, no urinary symptoms, no previous episodes of pain in past , started a few hours ago. Coronavirus screen: At this time, the client does not indicate any symptoms associated with coronavirus-19. Ebola Screen: Patient negative for fever greater than or equal to 101.5 degrees Fahrenheit, and additional compatible Ebola Virus Disease symptoms Patient denies exposure to infectious person. Patient denies travel to an Ebola-affected area in the 21 days before illness onset. No symptoms or risks identified at this time. Initial Sepsis Screen: Does the patient meet any 2 criteria? No. Patient's initial sepsis screen is negative. Does the patient have a suspected source of infection? No. Patient's initial sepsis screen is negative. Risk Assessment: Do you want to hurt yourself or someone else? Patient reports no desire to harm self or others. Onset of symptoms was August 24, 2021. 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 - Social history:: Smoking status: Patient denies any tobacco usage or history of. Screenin:22 Abuse screen: Denies threats or abuse. Nutritional screening: No deficits noted. jd3 Tuberculosis screening: No symptoms or risk factors identified. Fall Risk IV access (20 points). Ambulatory Aid- None/Bed Rest/Nurse Assist (0 pts). Gait- Normal/Bed Rest/Wheelchair (0 pts) Mental Status- Oriented to own ability (0 pts). Total Crouch Fall Scale indicates No Risk (0-24 pts). Assessment: 18:20 General: Appears in no apparent distress. uncomfortable, Behavior is calm, cooperative, jd3 appropriate for age. Pain: Complains of pain in right lower quadrant and left lower quadrant Quality of pain is described as sharp, tender. Neuro: Level of Consciousness is awake, alert, obeys commands, Oriented to person, place, time, situation. Cardiovascular: Denies chest pain, Capillary refill < 3 seconds Patient's skin is warm and dry. Respiratory: Airway is patent Respiratory effort is even, unlabored, Respiratory pattern is regular, symmetrical, Denies cough, shortness of breath. GI: Abdomen is non-distended, Abd is soft and non tender X 4 quads. Reports lower abdominal pain, intolerance of food, nausea, vomiting, Patient currently denies constipation, diarrhea. : No signs and/or symptoms were reported regarding the genitourinary system. EENT: No signs and/or symptoms were reported regarding the EENT system. Derm: Skin is intact, Skin is dry, Skin is normal, Skin temperature is warm. Musculoskeletal: Circulation, motion, and sensation intact. Range of motion: intact in all extremities. 22:36 Reassessment: Cleared for discharge to home by the provider. patient states she feels sv1 much better. Kendy murray /. Vital Signs: 16:53 BP 122 / 83; Pulse 80; Resp 16; Temp 98.6; Pulse Ox 100% on R/A; Weight 72.57 kg; iw Height 5 ft. 1 in. (154.94 cm); Pain 10/10; 18:28 BP 120 / 83; Pulse 81; Resp 16 S; Pulse Ox 99% on R/A; jd3 22:35 BP 107 / 73; Pulse 80; Resp 16; Temp 98.9; sv1 16:53 Body Mass Index 30.23 (72.57 kg, 154.94 cm) iw ED Course: 16:28 Patient arrived in ED. as 16:54 Triage completed. iw 16:55 Arm band placed on. iw 16:58 Inserted saline lock: 20 gauge in right antecubital area, using aseptic technique. iw Blood collected. by MICHAEL Yanes tech. 17:52 Harsh Ledbetter, VIRI is Primary Nurse. jd3 17:52 Claude Turner PA is PHCP. cp 17:52 Ewa Clark MD is Attending Physician. cp 18:22 Patient has correct armband on for positive identification. Bed in low position. Call jd3 light in reach. Side rails up X 1. Pulse ox on. NIBP on. 18:51 CT Abd/Pelvis - IV Contrast Only In Process Unspecified. EDMS 19:13 Primary Nurse role handed off by Harsh Ledbetter RN mw2 20:25 Pelvis Complete In Process Unspecified. EDMS 21:22 Inez Arias MD is Referral Physician. cp 21:45 Cameron Sanchez RN is Primary Nurse. sv1 22:37 IV discontinued. sv1 22:57 No provider procedures requiring assistance completed. sv1 Administered Medications: 18:22 Drug: NS 0.9% 1000 ml Route: IV; Rate: 1 bolus; Site: right antecubital; jd3 22:59 Follow up: IV Intake: 1000ml sv1 18:22 Drug: Zofran (Ondansetron) 4 mg Route: IVP; Site: right antecubital; jd3 22:58 Follow up: Response: No adverse reaction; Nausea is decreased sv1 18:22 Drug: morphine 2 mg Route: IVP; Site: right antecubital; jd3 22:58 Follow up: Response: No adverse reaction; Pain is decreased sv1 22:41 Drug: Rocephin - (cefTRIAXone) 1 grams Route: IVPB; Infused Over: 30 mins; Site: right sv1 antecubital; 22:56 Follow up: Response: No adverse reaction sv1 Intake: 22:59 IV: 1000ml; Total: 1000ml. sv1 Outcome: 21:23 Discharge ordered by MD. cp 22:57 Discharged to home ambulatory. sv1 22:57 Condition: good 22:57 Discharge instructions given to patient. 23:15 Patient left the ED. da3 Addendum: 08/28/2021 08:25 Addendum: Culture Results: Positive urine culture. No further action required. Bacteria i w sensitive to prescribed antibiotic. Signatures: Dispatcher [employer] EDAshly Weaver Irene, RN RN iw Page, Corey, PA PA cp Harsh Ledbetter RN RN jNavdeep Patton mw2 Raomn Arceo, RN RN da3 Cameron Sanchez, RN RN sv1
--- NOTE | 2021-08-24 21:24 | EDPHYS ---
Physician Documentation [facility] Name: Jalyn Carver Age: 31 yrs Sex: Female : 1990 Arrival Date: 08/24/2021 Time: 16:28 Bed 16 Private MD: ED Physician Ewa Clark HPI: 08/24 18:10 This 31 yrs old Female presents to ER via Ambulatory with complaints of cp Abdominal Pain, Back Pain. 18:10 The patient presents with abdominal pain in the lower abdomen. cp 18:10 Onset: The symptoms/episode began/occurred few hours ago. cp 18:10 The symptoms radiate to low back area. cp 18:10 Associated signs and symptoms: Pertinent positives: nausea and vomiting, Pertinent cp negatives: constipation, diarrhea, dysuria, fever, vaginal discharge. The symptoms are described as constant, twisting. 18:10 Severity of pain: in the emergency department the pain is unchanged despite home cp interventions. 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 - Social history:: Smoking status: Patient denies any tobacco usage or history of. ROS: 18:15 Constitutional: Negative for body aches, chills, fever, poor PO intake. cp 18:15 Eyes: Negative for injury, pain, redness, and discharge. cp 18:15 ENT: Negative for ear pain, sore throat, difficulty swallowing, difficulty handling secretions. 18:15 Cardiovascular: Negative for chest pain, palpitations. 18:15 Respiratory: Negative for cough, shortness of breath, wheezing. 18:15 Abdomen/GI: Positive for abdominal pain, nausea, of the right lower quadrant and left lower quadrant, Negative for vomiting, diarrhea, constipation. 18:15 Back: Positive for radiated pain, of the low back area, Negative for injury or acute deformity, decreased range of motion. 18:15 Neuro: Negative for altered mental status, headache, numbness, weakness. 18:15 All other systems are negative. Exam: 18:20 Constitutional: The patient appears in no acute distress, alert, awake, non-toxic, well cp developed, well nourished, uncomfortable. 18:20 Head/Face: Normocephalic, atraumatic. cp 18:20 Eyes: Periorbital structures: appear normal, Conjunctiva: normal, no exudate, no cp injection, Sclera: no appreciated abnormality, Lids and lashes: appear normal, bilaterally. 18:20 ENT: External ear(s): are unremarkable, Nose: is normal, Mouth: Lips: moist, Oral mucosa: moist, Posterior pharynx: Airway: no evidence of obstruction, patent. 18:20 Chest/axilla: Inspection: normal, Palpation: is normal, no crepitus, no tenderness. 18:20 Cardiovascular: Rate: normal, Rhythm: regular. 18:20 Respiratory: the patient does not display signs of respiratory distress, Respirations: normal, no use of accessory muscles, no retractions, labored breathing, is not present, Breath sounds: are clear throughout, no decreased breath sounds, no stridor, no wheezing. 18:20 Abdomen/GI: Inspection: abdomen appears normal, Bowel sounds: active, all quadrants, Palpation: soft, in all quadrants, moderate abdominal tenderness, in the right lower quadrant and left lower quadrant, rebound tenderness, is not appreciated, involuntary guarding, is not appreciated. 18:20 Back: pain, that is mild, of the low back area. cp Vital Signs: 16:53 BP 122 / 83; Pulse 80; Resp 16; Temp 98.6; Pulse Ox 100% on R/A; Weight 72.57 kg; iw Height 5 ft. 1 in. (154.94 cm); Pain 10/10; 18:28 BP 120 / 83; Pulse 81; Resp 16 S; Pulse Ox 99% on R/A; jd3 22:35 BP 107 / 73; Pulse 80; Resp 16; Temp 98.9; sv1 16:53 Body Mass Index 30.23 (72.57 kg, 154.94 cm) iw MDM: 17:56 Patient medically screened. cp 18:30 Differential diagnosis: appendicitis, cholecystitis, Cholelithiasis, diverticulitis, cp Endometriosis, gastritis, non-specific abd pain, Ovarian Torsion, Peritonitis, Pelvic Inflammatory Disease, Pyelonephritis, Ureterolithiasis, urinary tract infection. 21:22 Data reviewed: vital signs, nurses notes, lab test result(s), radiologic studies, CT cp scan, ultrasound. 21:22 Counseling: I had a detailed discussion with the patient and/or guardian regarding: the cp historical points, exam findings, and any diagnostic results supporting the discharge/admit diagnosis, lab results, radiology results, the need for outpatient follow up, for definitive care, an OB/Gyne specialist, to return to the emergency department if symptoms worsen or persist or if there are any questions or concerns that arise at home. Response to treatment: the patient's symptoms have markedly improved after treatment, and as a result, I will discharge patient. Special discussion: Based on the patient's Hx, exam, and Dx evaluation, there is no indication for emergent surgery or inpatient Tx. It is understood by the patient/guardian that if the Sx's persist or worsen they need to return immediately for re-evaluation. ED course: VSS. Pain improved with meds. Discussed results of labs, CT abdomen and US showing concern that ovarian mass may not be simple cyst and need for f/u with gynecology. Patient instructed return to ED worsening pain. 08/24 16:53 Order name: Basic Metabolic Panel; Complete Time: 18:08 08/24 18:08 Interpretation: Normal except: CL 108. 08/24 16:53 Order name: CBC with Diff; Complete Time: 18:08 08/24 19:39 Interpretation: Normal except: WBC 11.40; MCV 84.4; MCH 28.1; BILLY% 74.5; NEUT A 8.5. 08/24 16:53 Order name: Hepatic Function; Complete Time: 18:08 08/24 19:39 Interpretation: Normal except: GLOB 4.1; A/G 1.0. 08/24 16:53 Order name: Lipase; Complete Time: 18:08 08/24 17:15 Order name: Urine Dipstick-Ancillary; Complete Time: 18:08 EDOK 08/24 17:18 Order name: Urine Microscopic Only; Complete Time: 19:17 08/24 19:40 Interpretation: Reviewed. 08/24 17:19 Order name: Urine --Ancillary (enter results); Complete Time: 19:17 08/24 18:10 Order name: CT Abd/Pelvis - IV Contrast Only; Complete Time: 19:17 08/24 18:16 Order name: Urine Culture [facility] 08/24 20:25 Order name: Pelvis Complete; Complete Time: 21:39 EDOK 08/24 16:53 Order name: IV Saline Lock; Complete Time: 17:18 iw 08/24 16:53 Order name: Labs collected and sent; Complete Time: 17:18 08/24 16:55 Order name: Urine Dipstick-Ancillary (obtain specimen); Complete Time: 17:18 08/24 16:55 Order name: Urine Test (obtain specimen); Complete Time: 17:52 iw 08/24 21:06 Order name: PO challenge; Complete Time: 22:35 cp Administered Medications: 18:22 Drug: NS 0.9% 1000 ml Route: IV; Rate: 1 bolus; Site: right antecubital; jd3 22:59 Follow up: IV Intake: 1000ml sv1 18:22 Drug: Zofran (Ondansetron) 4 mg Route: IVP; Site: right antecubital; jd3 22:58 Follow up: Response: No adverse reaction; Nausea is decreased sv1 18:22 Drug: morphine 2 mg Route: IVP; Site: right antecubital; jd3 22:58 Follow up: Response: No adverse reaction; Pain is decreased sv1 22:41 Drug: Rocephin - (cefTRIAXone) 1 grams Route: IVPB; Infused Over: 30 mins; Site: right sv1 antecubital; 22:56 Follow up: Response: No adverse reaction sv1 Disposition Summary: 08/24/21 21:23 Discharge Ordered Location: Home cp Problem: new cp Symptoms: have improved cp Condition: Stable cp Diagnosis - UTI/ Urinary tract infection, site not specified cp - Right lower quadrant abdominal swelling, mass and lump cp Followup: cp - With: Inez Arias MD - When: 1 week - Reason: right ovarian cyst Discharge Instructions: - Discharge Summary Sheet cp - Urinary Tract Infection, Adult cp - Pelvic Mass, Female cp Forms: - Medication Reconciliation Form cp - Thank You Letter cp - Antibiotic Education cp - Prescription Opioid Use cp Prescriptions: - Augmentin 875-125 mg Oral Tablet - take 1 tablet by ORAL route every 12 hours for 10 days; 20 tablet; Refills: 0, cp Product Selection Permitted - Ibuprofen 800 mg Oral Tablet - take 1 tablet by ORAL route every 8 hours As needed take with food; 30 tablet; cp Refills: 0, Product Selection Permitted - Zofran 4 mg Oral Tablet - take 1 tablet by ORAL route every 12 hours As needed; 20 tablet; Refills: 0, cp Product Selection Permitted - Tramadol 50 mg Oral Tablet - take 1 tablet by ORAL route every 8 hours as needed; 12 tablet; Refills: 0, cp Product Selection Permitted Signatures: Dispatcher [employer] EDMS Leigha Barron RN RN Claude Nieves PA PA cp Davies, Jonathon, RN RN jd3 Cameron Sanchez RN RN sv1 Corrections: (The following items were deleted from the chart) 20:25 19:39 Transvaginal Study (Probe)+[email or web address] ordered. EDOK EDOK 21:44 21:23 Other ovarian cysts cp cp 08/25 16:14 08/24 17:00 Differential diagnosis: appendicitis, cholecystitis, Cholelithiasis, cp diverticulitis, Endometriosis, gastritis, non-specific abd pain, Ovarian Torsion, Peritonitis, Pelvic Inflammatory Disease, Pyelonephritis, Ureterolithiasis, urinary tract infection, cp
--- NOTE | 2021-08-24 21:33 | RAD REPORT ---
EXAM DESCRIPTION: US - Pelvis Complete - 08/24/2021 8:25 pm CLINICAL HISTORY: right ovarian cyst COMPARISON: Abdomen Pelvis W Contrast dated 08/24/2021 TECHNIQUE: Transabdominal pelvic sonography was performed. Patient declined endovaginal sonography FINDINGS: Uterus measures 11.7 x 4.7 x 5.2 cm. No endometrial abnormality seen. Endometrium is 3 mm in thickness. No myometrial mass. No blood or fluid in the cul de sac. Left ovary is normal size. Blood flow seen in the ovarian stroma. No suspicious solid or cystic left ovarian or left adnexal finding. Right ovary is identified also normal size. Normal blood flow in the stroma. Extending from the right lateral margin is a 5.4 centimeter thin-walled mass with low-level internal echogenicity. The mass i s mostly cystic in acoustic characteristics. A thin septation is seen. No fat component or calcificat ion. This is the correlate to the CT finding. An enlarged functional cyst is possible in this can be monitored for involution after 2-3 menstrual cycles. Cystadenoma would be a primary consideration. Th is too could be re-evaluated for growth in several months. A more aggressive cystadenocarcinoma unlik thom but not entirely excluded. IMPRESSION: Approximately 5.4 cm cystic mass projecting from the right ovary. Cystadenoma would be a primary consideration. Functional but large ovarian cyst is possible. Malignancy unlikely but not ex cluded. Follow-up sonography in 3-6 months could be performed to allow involution of any functional cyst and to monitor this cyst for any growth.
[2021-08-24] MEDS ORDERED: CEFTRIAXONE 1000 MG/VIAL ONE (22:39)
[2021-08-24 23:23] VITALS: O2SAT 99
[2021-08-24 23:25] VITALS: BP 107/73; TEMP 98.9
== END 2021-08-24 23:15 | disposition home or self-care (01) ==
LOC: ER 16:25
DX: N39.0 Urinary tract infection, site not specified (principal)
CPT/HCPCS: 36415; 74177; 76856; 80048; 80076; 81003; 81015; 81025; 83690; 85025; 87077; 87086; 87088; 87186; 96374; 96375; 99284; J2270; J2405; J7030; Q9967

== ENCOUNTER 2021-10-14 07:26 | Emergency (ER) | payer OTHER, SELFPAY ==
--- OUTSIDE RECORDS SUMMARY | 2021-10-14 07:28 | XMS REPORT | Continuity of Care Document ---
:[address] [facility] t Address [address] [place] [address] Care Team Providers Name Role Phone G_Pappas Attending Clinician Unavailable G_Pappas Admitting Clinician Unavailable Payers Payer Name Policy Type Policy Number Effective Date Expiration Date Wednesday HEALTH PLANS [id number] [facility] [id number] CHOICE (MEDICAID REPLACEMENT - HMO) Problems Condition Condition Condition Status Onset Resolution Last Treating Co mments Source Name Details Category Date Date Treatment Clinician Date Sprain of Sprain of Diagnosis Active [facility] anterior anterior [facility] - talofibula talofibula Me moria r ligament r ligament l of left of left Outpati ankle, ankle, ent initial initial Clinics encounter encounter Acute left Acute left Diagnosis Active [facility] ankle pain ankle pain [facility] Allergies, Adverse Reactions, Alerts This patient has no known allergies or adverse reactions. Social History Smoking Status Start Date Stop Date Source Never Smoker [facility] Medications Ordered Filled Start Stop Current Ordering Indication Dosage Frequency Signature Comments Components Source Medication Medication Date Date Medication? Clinician (SIG) Name Name ibuprofen ibuprofen No ibuprofen [facility] 800 mg 800 mg 800 mg da tablet tablet tablet [facility] ibuprofen ibuprofen Yes Russell not [facility] defined [facility] Vital Signs Vital Name Observation Time Observation Value Comments Source BP Diastolic 2021-09-16 00:00:00 74 mm[Hg] [facility] Height 2021-09-16 00:00:00 61 [in_i] [facility] BMI (Body Mass 2021-09-16 00:00:00 31.4 kg/m2 [facility]) [facility] BP Systolic 2021-09-16 00:00:00 127 mm[Hg] [facility] Body Weight 2021-09-16 00:00:00 166.1 [lb_av] [facility] Procedures Procedure Date / Time Performed Performing Clinician Sour e US, transvaginal 2021-09-16 00:00:00 [facility] Section 2015-09-18 00:00:00 [facility] Caesarean Section 2014-01-31 00:00:00 [facility] Caesarean Section 2010-05-19 00:00:00 [facility] Tubal Ligation [facility] Plan of Care Planned Activity Planned Date Details Comments Source Diagnostic Test 2021-09-16 urinalysis, [facility] 00:00:00 dipstick [code = Group urinalysis, dipstick] Encounters Start End Encounter Admission Attending Care Care Encounter Source Date/Time Date/Time Type Type Clinicians Facility Department ID 2021-10-13 2021-10-13 Outpatient [facility] 2021 [facility] 02:02:00 02:02:00 [id number] 2021-10-08 2021-10-08 Outpatient [facility] 2021 [facility] 07:07:00 07:07:00 [id number] 2021-09-16 2021-09-16 Outpatient [facility] 2021 [place] 04:36:00 04:36:00 [id number] 2021-09-16 2021-09-16 [facility] [place] - [id number] [facility] 00:00:00 00:00:00 [facility] pearl Mejia MD: [address] [address] , Ph. [phone] 2021-09-01 2021-09-01 Outpatient G[facility]as [facility] 2020 [place] 11:39:00 11:39:00 [id number] 2021-08-25 2021-08-25 Outpatient [facility] 2020 [place] 09:16:00 09:16:00 [id number] 2020-11-28 2020-11-28 Outpatient G_Pappas [facility] 2020 [facility] 09:43:00 09:43:00 [id number] [facility] 2019-07-12 2019-07-12 Outpatient [facility] [place] [id number] [facility] [address] 08:30:00 08:30:00 [facility] Results Test Description Test Time Test Comments Results Result Comments Source Urinalysis macro (dipstick) panel - Urine 2021-09-16 15:46:4 2 Test Item Value Reference Range Interpretation Comme nts Leukocytes (test code = Leukocytes) Negative Nitrite (test code = Nitrite) negative Urobilinogen (test code = Urobilinogen) .2 Protein (test code = Protein) Negative pH (test code = pH) 6.5 Blood (test code = Blood) Negative Specific [place] (test code = Specific [place]) 1.025 Ketone (test code = Ketone) Negative Bilirubin (test code = Bilirubin) Negative Glucose (test code = Glucose) Negative Appearance (test code = Appearance) Clear Color (test code = Color) Dark Yellow [facility]
--- NOTE | 2021-10-14 07:57 | EDPHYS ---
Physician Documentation [facility] Name: Jalyn Carver Age: 31 yrs Sex: Female : 1990 Arrival Date: 10/14/2021 Time: 07:29 Bed 12 Private MD: ED Physician Luis Alberto Hurst HPI: 10/14 07:50 This 31 yrs old Female presents to ER via Ambulatory with complaints of rn Toothache. 07:50 The patient presents with pain. The problem is located in the left upper tooth. Onset: rn The symptoms/episode began/occurred yesterday. Duration: The symptoms are intermittent. Modifying factors: The symptoms are alleviated by nothing, the symptoms are aggravated by chewing, cold fluids. Associated signs and symptoms: Pertinent positives: pain, Pertinent negatives: fever, swelling, vomiting. Severity of symptoms: At their worst the symptoms were moderate, in the emergency department the symptoms are unchanged. The patient has experienced similar episodes in the past. The patient has not recently seen a physician. Pt reports left upper dental pain that began yesterday, no fever, no swelling, no difficulty swallowing. No trauma. Reports has had issues with teeth before, wants tooth pulled but dentist recommends root canal. Reports pain got worse yesterday but has been having pain for sometime.. 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 - Social history:: Smoking status: Patient denies any tobacco usage or history of. - Family history:: not pertinent. - Hospitalizations: : No recent hospitalization is reported. ROS: 07:50 Constitutional: Negative for fever, chills, and weight loss, Eyes: Negative for injury, rn pain, redness, and discharge, ENT: + dental pain Neck: Negative for injury, pain, and swelling. Exam: 07:50 Constitutional: This is a well developed, well nourished patient who is awake, alert, rn and in no acute distress. Head/Face: Normocephalic, atraumatic. ENT: No obvious dental abscess or swelling, no stridor, MMM Neck: Trachea midline, no masses palpated, and no cervical lymphadenopathy. Supple, full range of motion. No Meningismus. Vital Signs: 07:39 BP 122 / 88; Pulse 82; Resp 18; Temp 98.1; Pulse Ox 100% on R/A; Weight 72.57 kg; ww Height 5 ft. 1 in. (154.94 cm); Pain 9/10; 07:39 Body Mass Index 30.23 (72.57 kg, 154.94 cm) ww MDM: 07:41 Patient medically screened. rn 07:50 Differential diagnosis: dental caries, dental abscess. Data reviewed: vital signs, rn nurses notes, and as a result, I will discharge patient. Counseling: I had a detailed discussion with the patient and/or guardian regarding: the historical points, exam findings, and any diagnostic results supporting the discharge/admit diagnosis, the need for outpatient follow up, to return to the emergency department if symptoms worsen or persist or if there are any questions or concerns that arise at home. Special discussion: I discussed with the patient/guardian in detail that at this point there is no indication for admission to the hospital. It is understood, however, that if the symptoms persist or worsen the patient needs to return immediately for re-evaluation. Based on the history and exam findings, there is no indication for further emergent testing or inpatient evaluation. I discussed with the patient/guardian the need to see a dentist for further evaluation of the symptoms. 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
--- NOTE | 2021-10-14 07:57 | ER ---
Nurse's Notes [facility] Name: Jalyn Carver Age: 31 yrs Sex: Female : 1990 Arrival Date: 10/14/2021 Time: 07:29 Bed 12 Private MD: Diagnosis: Dental caries, unspecified Presentation: 10/14 07:39 Chief complaint: Patient states: Left upper tooth ache that started last night and has ww progressively gotten more painful. Coronavirus screen: Vaccine status: Patient reports receiving the 2nd dose of the covid vaccine. Client denies travel out of the [place] in the last 14 days. Ebola Screen: Patient negative for fever greater than or equal to 101.5 degrees Fahrenheit, and additional compatible Ebola Virus Disease symptoms Patient denies exposure to infectious person. Patient denies travel to an Ebola-affected area in the 21 days before illness onset. Initial Sepsis Screen: Does the patient meet any 2 criteria? No. Patient's initial sepsis screen is negative. Does the patient have a suspected source of infection? No. Patient's initial sepsis screen is negative. Risk Assessment: Do you want to hurt yourself or someone else? Patient reports no desire to harm self or others. Onset of symptoms was October 13, 2021. 07:39 Method Of Arrival: Ambulatory ww 07:39 Acuity: ABDIEL 4 ww Triage Assessment: 07:41 General: Appears in no apparent distress. Behavior is calm, cooperative. Pain: ww Complains of pain in left buccal mucosa. EENT: Reports pain in left buccal mucosa. Neuro: Level of Consciousness is awake, alert, obeys commands, Oriented to person, place, time, situation, Speech is normal. Cardiovascular: Capillary refill < 3 seconds Patient's skin is warm and dry. Respiratory: Airway is patent Respiratory effort is even, unlabored, Respiratory pattern is regular, symmetrical. GI: No signs and/or symptoms were reported involving the gastrointestinal system. : No signs and/or symptoms were reported regarding the genitourinary system. Derm: No signs and/or symptoms reported regarding the dermatologic system. Skin is healthy with good turgor. 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 - Social history:: Smoking status: Patient denies any tobacco usage or history of. - Family history:: not pertinent. - Hospitalizations: : No recent hospitalization is reported. Screenin:42 Abuse screen: Denies threats or abuse. Denies injuries from another. Nutritional ww screening: No deficits noted. Tuberculosis screening: No symptoms or risk factors identified. Fall Risk None identified. Assessment: 08:03 Reassessment: Patient appears in no apparent distress at this time. No changes from ww previously documented assessment. Vital Signs: 07:39 BP 122 / 88; Pulse 82; Resp 18; Temp 98.1; Pulse Ox 100% on R/A; Weight 72.57 kg; ww Height 5 ft. 1 in. (154.94 cm); Pain 9/10; 07:39 Body Mass Index 30.23 (72.57 kg, 154.94 cm) ww ED Course: 07:29 Patient arrived in ED. as 07:41 Triage completed. ww 07:41 Luis Alberto Hurst MD is Attending Physician. rn 07:41 Arm band placed on right wrist. ww 08:03 Patient has correct armband on for positive identification. Bed in low position. Call ww light in reach. 08:03 No provider procedures requiring assistance completed. Patient did not have IV access ww during this emergency room visit. Administered Medications: No medications were administered Outcome: 07:56 Discharge ordered by . rn 08:03 Discharged to home ambulatory. ww 08:03 Condition: stable 08:03 Discharge instructions given to patient, Instructed on discharge instructions, follow up and referral plans. medication usage, safety practices, Demonstrated understanding of instructions, follow-up care, medications, Prescriptions given X 2. 08:03 Patient left the ED. ww Signatures: Ashly Kemp Roman, MD MD rn Wood, Whitney, RN RN ww
[2021-10-14 08:38] VITALS: BP 122/88; TEMP 98.1; O2SAT 100
== END 2021-10-14 08:03 | disposition home or self-care (01) ==
LOC: ER 07:26
DX: K02.9 Dental caries, unspecified (principal)
CPT/HCPCS: 99282

== ENCOUNTER 2021-12-12 17:14 | Emergency (ER) | payer OTHER ==
--- OUTSIDE RECORDS SUMMARY | 2021-12-12 17:17 | XMS REPORT | Continuity of Care Document ---
:1990 Author Organization [facility] t Address 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 Social History Smoking Status Start Date Stop Date Source Never Smoker [facility] Medications Ordered Filled Start Stop Current Ordering Indication Dosage Frequency Signature Comments Components Source Medication Medication Date Date Medication? Clinician (SIG) Name Name ibuprofen ibuprofen Yes [facility] not [facility] ibuprofen ibuprofen No 1 Q6H ibuprofen [facility] 800 mg 800 mg 800 mg da tablet Take tablet Take tablet Medical 1 tablet 1 tablet Take 1 Group every 6 every 6 tablet hours by hours by every 6 oral route oral route hours by as needed. as needed. oral route as needed. Provera 10 Provera 10 No 1 Q1D Provera 10 [place] mg tablet mg tablet mg tablet da Take 1 Take 1 Take 1 Medical tablet tablet tablet Group every day every day every day by oral by oral by oral route for route for route for 10 days. 10 days. 10 days. Tylenol-Cod Tylenol-Cod No Tylenol-Co [place] eine #3 300 eine #3 300 deine #3 da mg-30 mg mg-30 mg 300 mg-30 Me dical tablet 1-2 tablet 1-2 mg tablet Group p.o. q 6 p.o. q 6 1-2 p.o. q hrs PRN hrs PRN 6 hrs PRN pain pain pain Vital Signs Vital Name Observation Time Observation Value Comments Source BP Diastolic 2021-12-08 00:00:00 77 mm[Hg] [facility] Height 2021-12-08 00:00:00 61 [in_i] [facility] BMI (Body Mass 2021-12-08 00:00:00 31.6 kg/m2 [facility]) Group BP Systolic 2021-12-08 00:00:00 122 mm[Hg] [facility] Body Weight 2021-12-08 00:00:00 167 [lb_av] [facility] BP Diastolic 2021-10-31 00:00:00 69 mm[Hg] [facility] Height 2021-10-31 00:00:00 61 [in_i] [facility] BP Systolic 2021-10-31 00:00:00 121 mm[Hg] [facility] BP Diastolic 2021-09-16 00:00:00 74 mm[Hg] [facility] Height 2021-09-16 00:00:00 61 [in_i] [facility] BMI (Body Mass 2021-09-16 00:00:00 31.4 kg/m2 [facility]) Group BP Systolic 2021-09-16 00:00:00 127 mm[Hg] [facility] Body Weight 2021-09-16 00:00:00 166.1 [lb_av] [facility] Procedures Procedure Date / Time Performed Performing Clinician [facility] e US, transvaginal 2021-10-31 00:00:00 [facility] US, transvaginal 2021-09-16 00:00:00 [facility] Section 2015-09-18 00:00:00 [facility] Caesarean Section 2014-01-31 00:00:00 [facility] Caesarean Section 2010-05-19 00:00:00 [facility] Tubal Ligation [facility] Plan of Care Planned Activity Planned Date Details Comments Source Diagnostic Test 2021-12-08 test, [facility] Pending 00:00:00 urine [code = Group test, urine] Diagnostic Test 2021-12-08 urinalysis, [facility] 00:00:00 dipstick [code = Group urinalysis, dipstick] Future Appointment 2021-12-23 Ottoniel Gonsales, Kun [facility] 09:30:00 [facility] [address]; , [place] [address] Encounters Start End Encounter Admission Attending Care Care Encounter Source Date/Time Date/Time Type Type Clinicians Facility Department ID 2021-12-08 2021-12-08 Outpatient [facility] 2021 [place] 10:37:00 10:37:00 [id number] 2021-12-08 2021-12-08 Ottoniel [place] - [id number] [facility] 00:00:00 00:00:00 Discovery pearl Gonsales MD: Kun [facility] - [address], [place] [address] , Ph. [phone] 2021-12-05 2021-12-05 Outpatient [facility] 2021 [place] 12:45:00 12:45:00 [id number] 2021-11-04 2021-11-04 Outpatient [facility] 2021 [place] 11:50:00 11:50:00 [id number] 2021-10-31 2021-10-31 Outpatient [facility] 2021 [place] 03:07:00 03:07:00 [id number] [facility] 2021-10-31 2021-10-31 Ottoniel [place] - [id number] [facility] 00:00:00 00:00:00 Discovery pearl Gonsales MD: [address] [place] [phone] , Ph. [phone] 2021-10-27 2021-10-27 Outpatient [facility] 2021 [place] 11:03:00 11:03:00 [id number] [facility] 2021-10-13 2021-10-13 Outpatient [facility] 2021 [place] 02:02:00 02:02:00 [id number] [facility] Group 2021-10-08 2021-10-08 Outpatient [facility] 2021 [place] 07:07:00 07:07:00 [id number] [facility] 2021-09-16 2021-09-16 Outpatient [facility] 2021 [place] 04:36:00 04:36:00 [id number] [facility] Group 2021-09-16 2021-09-16 Ottoniel [facility] [place] - [id number] M [facility] 00:00:00 00:00:00 Discovery pearl Gonsales MD: [address] [place] [phone] , Ph. [phone] 2021-09-01 2021-09-01 Outpatient [facility] 2020 [place] 11:39:00 11:39:00 [id number] [facility] 2021-08-25 2021-08-25 Outpatient [facility] 2020 [place] 09:16:00 09:16:00 1213 [facility] 2020-11-28 2020-11-28 Outpatient [facility] 2020 [place] 09:43:00 09:43:00 0318 Medical [facility] 2019-07-12 2019-07-12 [facility] [id number] 08:30:00 08:30:00 [facility] Clin[facility] Results Test Description Test Time Test Comments Results Result Comments Source Urinalysis macro (dipstick) panel - Urine 2021-12-08 09:47:1 7 Test Item Value Reference Range Interpretation Comme nts Leukocytes (test code = Leukocytes) Negative Nitrite (test code = Nitrite) negative Urobilinogen (test code = Urobilinogen) .2 Protein (test code = Protein) Negative pH (test code = pH) 5.5 Blood (test code = Blood) Negative Specific [place] (test code = Specific [place]) 1.025 Ketone (test code = Ketone) Negative Bilirubin (test code = Bilirubin) Negative Glucose (test code = Glucose) Negative Appearance (test code = Appearance) Clear Color (test code = Color) Yellow [facility] [id number] 09:46:00 Test Item Value Reference Range Interpretation Comments Test (test code = negative Test) [facility] [id number] 09:04:00 Test Item Value Reference Range Interpretation Comments Choriogonadotropin ( test) negative neg [Presence] in Urine (test code = 2106-3) [facility] - [id number] 09:04:00 Test Item Value Reference Range Interpretation Comments Color of Urine by Auto (test light yellow code = 23505-8) Appearance of Urine (test code = SL cloudy clear A 5767-9) Glucose [Presence] in Urine by negative negative Automated test strip (test code = 18426-1) Bilirubin.total [Mass/volume] in negative negative Urine (test code = 1978-6) Ketones [Mass/volume] in Urine negative negative by Automated test strip (test code = 44056-1) Specific gravity of Urine by 1.019 1.003-1.030 Automated test strip (test code = 85105-4) blood urine (test code = blood trace negative urine) pH of Urine (test code = 2756-5) 5.500 5-9 protein urine (UA) (test code = trace negative protein urine (UA)) Urobilinogen [Presence] in Urine normal 0.2-1.0 (test code = 12181-4) Nitrite [Presence] in Urine by negative negative Test strip (test code = 5802-4) Leukocyte esterase [Presence] in =3 negative H Urine by Automated test strip (test code = 14226-5) Erythrocytes [#/volume] in Urine =1-5 0-5 by Automated count (test code = 798-9) Leukocytes [#/area] in Urine >50 0-5 H sediment by Automated count (test code = 20561-3) Epithelial cells [Presence] in =1-5 0-5 Urine sediment by Light microscopy (test code = 02211-6) Bacteria identified in Urine by moderate (2 none detect H Culture (test code = 630-4) Casts [#/area] in Urine sediment =6-10 none detect H by Automated count (test code = 89025-8) urine culture added? (test code yes = urine culture added?) [facility] Auto Differential panel - [id number] 08:30:00 Test Item Value Reference Range Interpretation Comments white blood count (test code = 5.5 K/uL 4.0-11.5 white blood count) red blood count (test code = red 4.50 M/uL 3.80-5.20 blood count) hemoglobin (test code = 12.9 g/dL 10.5-15.7 hemoglobin) hematocrit (test code = 38.8 % 34.0-50.0 hematocrit) MCV [Entitic volume] (test code = 86.2 fL 86.0-100.0 65231-7) mean corpuscular hemoglobin (test 28.7 pg 26.2-33.4 code = mean corpuscular hemoglobin) mean corpuscular HGB conc (test 33.2 g/dL 30.0-34.0 code = mean corpuscular HGB conc) red cell distribution width (test 12.2 % 12.0-15.5 code = red cell distribution width) platelet count (test code = 333 K/uL 165-450 platelet count) mean platelet volume (test code = 11.1 fL 9.4-12.6 mean platelet volume) Segmented neutrophils/100 59.8 % 44.4-80.1 leukocytes in Blood (test code = 72717-9) Immature granulocytes [#/volume] 0.02 K/uL 0.00-0.03 in Blood (test code = 77304-7) lymphocyte% (test code = 27.0 % 10.0-50.0 lymphocyte%) mono % (test code = mono %) 10.5 % 3.6-12.0 eos % (test code = eos %) 1.7 % 0.0-5.4 Basophils/100 leukocytes in 0.6 % 0.1-1.2 Specimen (test code = 45467-0) Band form neutrophils [#/volume] 3.27 K/uL 1.56-6.13 in Blood (test code = 10058-2) Lymphocytes [#/volume] in Specimen 1.47 K/uL 1.18-3.74 by Automated count (test code = 58069-7) mono # (test code = mono #) 0.57 K/uL 0.24-0.86 eos # (test code = eos #) 0.09 K/uL 0.04-0.36 basophil # (test code = basophil 0.03 K/uL 0.01-0.08 #) NRBC% (test code = NRBC%) 0 /100 WBC 0-0.2 NRBC# (test code = NRBC#) 0 K/uL [facility] - Serum or Plasma 2021-12-01 08:30:00 Test Item Value Reference Range Interpretation Comments Glucose [Mass/volume] in Serum or 91 mg/dL 74-106 Plasma (test code = 2345-7) Urea nitrogen [Mass/volume] in 9 mg/dL 6-20 Serum or Plasma (test code = 3094-0) osmolality calculated,serum (test 272 mOsm/kg 280-300 L code = osmolality calculated,serum) creatinine (test code = 0.58 mg/dL 0.50-0.90 creatinine) glomerular filtration rate (test >60.00 code = glomerular filtration rate) Urea nitrogen/Creatinine [Mass 15.5 12.0-20.0 Ratio] in Serum or Plasma (test code = 3097-3) sodium level (test code = sodium 137 mmol/L 135-145 level) potassium level (test code = 3.7 mmol/L 3.5-5.2 potassium level) chloride level (test code = 102 mmol/L 98-108 chloride level) CO2 (test code = CO2) 25 mmol/L 21-32 anion gap (test code = anion gap) 13.7 mEq/L 12.0-20.0 calcium level (test code = 9.3 mg/dL 8.6-10.0 calcium level) total protein (test code = total 7.9 g/dL 6.6-8.7 protein) albumin (test code = albumin) 4.6 g/dL 3.5-5.2 globulin (test code = globulin) 3.3 g/dL 1.5-4.5 A/G ratio (test code = A/G ratio) 1.4 >1.0 bilirubin,total (test code = 0.6 mg/dL 0.0-1.2 bilirubin,total) AST/SGOT (test code = AST/SGOT) 33 U/L 15-32 H Alanine aminotransferase 37 U/L 0-33 H [Enzymatic activity/volume] in Serum or Plasma (test code = 1742-6) Alkaline phosphatase [Enzymatic 71 U/L 35-105 activity/volume] in Serum or Plasma (test code = 6768-6) [facility] - [id number] 15:46:42 Test Item Value Reference Range Interpretation Comments Leukocytes (test code = Negative Leukocytes) Nitrite (test code = Nitrite) negative Urobilinogen (test code = .2 Urobilinogen) Protein (test code = Protein) Negative pH (test code = pH) 6.5 Blood (test code = Blood) Negative Specific [place] (test code = 1.025 Specific [place]) Ketone (test code = Ketone) Negative Bilirubin (test code = Bilirubin) Negative Glucose (test code = Glucose) Negative Appearance (test code = Clear Appearance) Color (test code = Color) Dark Yellow [facility]
[2021-12-12] MEDS ORDERED: NA CHLORIDE 0.9% 1,000 ML ONE ×2 (18:54→22:24)
[2021-12-12] MEDS ORDERED: ONDANSETRON 4 MG/2 ML VIAL ONE (18:54)
[2021-12-12] MEDS ORDERED: FAMOTIDINE 20 MG/2 ML VIAL IV ONE (18:54)
[2021-12-12 19:01] LABS: Urine Blood 3+ (Negative); Urine Glucose Negative (Negative); Urine Protein 2+ (Negative)
[2021-12-12 19:03] LABS: Absolute Lymphocytes (CBC) 1.7 K/uL (0.7-4.9); Hematocrit 23.5 % (36.0-45.0); Lymphocytes % 19.2 % (15.3-44.8)
[2021-12-12 19:21] LABS: ALT/SGPT 16 U/L (12-78); AST/SGOT 12 U/L (15-37); Albumin 3.4 g/dL (3.4-5.0); Alkaline Phosphatase 52 U/L (45-117); BUN Blood Urea Nitrogen 7 mg/dL (7-18); Bicarbonate 29 mmol/L (21-32); Bilirubin Total 0.7 mg/dL (0.2-1.0); Glucose Level 98 mg/dL (74-106); Lipase 90 U/L (73-393); Potassium 3.5 mmol/L (3.5-5.1); Protein, Total 7.1 g/dL (6.4-8.2); Sodium Level 138 mmol/L (136-145)
[2021-12-12 19:22] LABS: Urine Bacteria 20-50 /HPF (<20); Urine Mucus 1+ /HPF (NONE SEEN); Urine RBC >50 /HPF (NONE SEEN)
[2021-12-12 20:08] LABS: SARS-COV-2 RT PCR NEGATIVE (NEGATIVE)
--- NOTE | 2021-12-12 20:27 | RAD REPORT ---
EXAM DESCRIPTION: CT - Head Brain Wo Cont - 12/12/2021 8:14 pm CLINICAL HISTORY: HEADACHE COMPARISON: Head Brain Wo Cont dated 04/29/2020 TECHNIQUE: Axial 5 mm thick images of the head were obtained without IV contrast. All CT scans are performed using dose optimization technique as appropriate and may include automated exposure control or mA/KV adjustment according to patient size. FINDINGS: No intracranial hemorrhage, mass, edema or shift of mid-line structures. No acute infarcti on changes seen. No abnormal extra-axial fluid collections. Ventricles are normal. Mastoid air cells and visualized portions of the paranasal sinuses are clear. No acute bony findings. No identifiable changes from 04/29/2020 imaging. IMPRESSION: Negative non-contrast CT head examination.
--- NOTE | 2021-12-12 20:36 | RAD REPORT ---
EXAM DESCRIPTION: CT - Abdomen Pelvis W Contrast - 12/12/2021 8:17 pm CLINICAL HISTORY: ABD PAIN, patient reports recent right oophorectomy COMPARISON: Abdomen Pelvis W Contrast dated 08/24/2021 TECHNIQUE: Biphasic, helical CT imaging of the abdomen and pelvis was performed following 100 ml non -ionic IV contrast. No oral contrast administered. All CT scans are performed using dose optimization technique as appropriate and may include automated exposure control or mA/KV adjustment according to patient size. FINDINGS: Trace amounts of bilateral pleural fluid seen with partial atelectasis of each lower lobe. No pericardial effusion. The liver, spleen, and pancreas show no suspicious findings. Gallbladder and biliary tree are also wi thout suspicious finding. Symmetric renal function is seen with no hydronephrosis or suspicious renal mass. No pyelonephritis o r acute parenchymal process. No bladder abnormalities. No adrenal abnormalities. No dilated bowel loops or bowel wall thickening. No direct or indirect evidence for appendicitis. No free air or pneumatosis. In the subcutaneous fatty tissues right lower quadrant there is an amorphous 12 x 7 x 5 cm area of in termediate attenuation stranding. This is typical appearance for hemorrhagic material. Numerous punct ate air densities are present. This is probably hemorrhage related to a laparoscopic access site. No hematoma of the abdominal wall seen. Intraperitoneal free fluid is present. Attenuation ranges from 4 0-65 Hounsfield units. This is most likely intraperitoneal hemorrhage. No hemorrhage from the interna l mammary artery seen. Right ovary is not identified matching the surgical history. Left ovary is inc reased in size from the August 2021 study likely containing small cysts. No uterine abnormality see n. No suspicious bony findings. IMPRESSION: Intraperitoneal hemorrhage is present small to moderate in quantity. No acute extravasat ion is identifiable. Presence of active bleeding cannot be confirmed. Large 12 x 7 x 5 cm area of hemorrhagic material in the deep subcutaneous fatty tissues right lower q uadrant. A few punctate air densities are present. This is likely related to laparoscopic access site . Active extravasation is not seen. Minimal pleural effusions with partial atelectasis of each lower lobe.
--- NOTE | 2021-12-12 22:10 | ER ---
Nurse's Notes [facility] Name: Jalyn Carver Age: 31 yrs Sex: Female : 1990 Arrival Date: 12/12/2021 Time: 17:19 Bed 20 Private MD: Diagnosis: RLQ Intraperitoneal Hemmorhage post Right Oophrectomy Presentation: 12/12 17:57 Chief complaint: Patient states: "I had surgery Wednesday to remove my right ovary and ab2 today I have a headache, n/v and abdominal pain. I cant keep anything down". Coronavirus screen: Vaccine status: Patient reports receiving the 2nd dose of the covid vaccine. Client denies travel out of the [place] in the last 14 days. At this time, the client does not indicate any symptoms associated with coronavirus-19. Ebola Screen: Patient negative for fever greater than or equal to 101.5 degrees Fahrenheit, and additional compatible Ebola Virus Disease symptoms Patient denies exposure to infectious person. Patient denies travel to an Ebola-affected area in the 21 days before illness onset. No symptoms or risks identified at this time. Initial Sepsis Screen: Does the patient meet any 2 criteria? HR > 90 bpm. Does the patient have a suspected source of infection? No. Patient's initial sepsis screen is negative. Risk Assessment: Do you want to hurt yourself or someone else? Patient reports no desire to harm self or others. Onset of symptoms is unknown. 17:57 Method Of Arrival: Wheelchair ab2 17:57 Acuity: ABDIEL 3 ab2 Triage Assessment: 18:00 General: Appears in no apparent distress. uncomfortable, Behavior is calm, cooperative, ab2 appropriate for age. Pain: Complains of pain in head and abdomen Pain currently is 8 out of 10 on a pain scale. Neuro: Level of Consciousness is awake, alert, obeys commands, Oriented to person, place, time, situation, Appropriate for age Skiver Machine are equal bilaterally Moves all extremities. Gait is steady, Speech is normal. Respiratory: Airway is patent Respiratory effort is even, unlabored, Respiratory pattern is regular, symmetrical. GI: Reports lower abdominal pain, upper abdominal pain, intolerance of fluids, intolerance of food, nausea, vomiting. 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 - Social history:: Smoking status: Patient denies any tobacco usage or history of. Screenin:58 Abuse screen: Denies threats or abuse. Denies injuries from another. Nutritional bell screening: No deficits noted. Tuberculosis screening: No symptoms or risk factors identified. Fall Risk IV access (20 points). Assessment: 18:58 General: Appears in no apparent distress. Behavior is calm, cooperative. Pain: bell Complains of pain in abdomen. GI: Reports nausea, Pain is 6 out of 10 on a pain scale. vomiting. 19:17 General: Appears uncomfortable, well groomed, well developed, well nourished, Behavior tw5 is calm, cooperative. 19:17 Pain: Complains of pain in head Pain does not radiate. Pain currently is 8 out of 10 on tw5 a pain scale. Quality of pain is described as sharp. Neuro: Level of Consciousness is awake, alert, obeys commands, Oriented to person, place, time, Skiver Machine are equal bilaterally Moves all extremities. Gait is steady, Speech is normal, Facial symmetry appears normal. Cardiovascular: Capillary refill < 3 seconds is brisk in bilateral fingers. Respiratory: Airway is patent Respiratory effort is even, unlabored, Respiratory pattern is regular, symmetrical, Breath sounds are clear. GI: Abdomen is round non-distended, Bowel sounds present X 4 quads. Reports lower abdominal pain. : No deficits noted. No signs and/or symptoms were reported regarding the genitourinary system. EENT: No deficits noted. No signs and/or symptoms were reported regarding the EENT system. Derm: No deficits noted. No signs and/or symptoms reported regarding the dermatologic system. Derm: Reports Incision sites dry and intact. Healing. 20:30 Musculoskeletal: No deficits noted. No signs and/or symptoms reported regarding the tw5 musculoskeletal system. 20:30 Reassessment: No changes from previously documented assessment. Patient and/or family tw5 updated on plan of care and expected duration. Pain level reassessed. Patient is alert, oriented x 3, equal unlabored respirations, skin warm/dry/pink. Pain: Pain currently is 8 out of 10 on a pain scale. 22:00 Reassessment: Patient and/or family updated on plan of care and expected duration. Pain tw5 level reassessed. Patient is alert, oriented x 3, equal unlabored respirations, skin warm/dry/pink. Pain: Pain currently is 8 out of 10 on a pain scale. 12/13 00:05 Reassessment: Patient and/or family updated on plan of care and expected duration. Pain tw5 level reassessed. Pain: Pain currently is 5 out of 10 on a pain scale. 01:26 Reassessment: Report given to [facility] Patient loaded for transport to [address] Vital Signs: 12/12 17:57 BP 101 / 67; Pulse 107; Resp 17; Temp 99.0(TE); Pulse Ox 99% on R/A; Weight 72.57 kg; ab2 Height 5 ft. 1 in. (154.94 cm); Pain 8/10; 19:00 BP 109 / 70 LA Supine (auto/reg); Pulse 104 MON; Resp 18 S; Temp 99.1(O); Pulse Ox 100% tw5 on R/A; Pain 8/10; 20:00 BP 101 / 60 LA Supine (auto/reg); Pulse 97 MON; Resp 20; Pulse Ox 99% on R/A; tw5 21:00 BP 113 / 73 LA Supine (auto/reg); Pulse 95 MON; Resp 18 S; Pulse Ox 99% on R/A; tw5 23:00 BP 104 / 68 LA Supine (auto/reg); Pulse 100 MON; Resp 20 S; Pulse Ox 97% on R/A; Pain tw5 6/10; 12/13 00:05 BP 99 / 67 LA Supine (auto/reg); Pulse 89; Resp 18 S; Pulse Ox 97% on R/A; tw5 12/12 17:57 Body Mass Index 30.23 (72.57 kg, 154.94 cm) ab2 ED Course: 12/12 17:19 Patient arrived in ED. am2 17:59 Triage completed. ab2 18:00 Arm band placed on right wrist. ab2 18:15 Claude Turner PA is PHCP. cp 18:15 Luis Alberto Hurst MD is Attending Physician. cp 18:58 Patient has correct armband on for positive identification. Bed in low position. bell 18:58 COVID-19/FLU A+B (Document "Date of Onset" if Symptomatic) Sent. bell 18:58 No provider procedures requiring assistance completed. Inserted saline lock: 20 gauge bell in right antecubital area, using aseptic technique. 19:17 Mary Suarez is Primary Nurse. tk1 19:17 Patient has correct armband on for positive identification. Bed in low position. Call tw5 light in reach. Side rails up X 1. Pulse ox on. NIBP on. 19:17 IV is patent, is intact, with fluids infusing freely, with good blood return. tw5 19:23 XRAY Chest (1 view) In Process Unspecified. EDMS 20:16 CT Head Brain wo Cont In Process Unspecified. EDMS 20:19 CT Abd/Pelvis - IV Contrast Only In Process Unspecified. EDMS 22:22 Blood Culture Adult (2) Sent. tw5 22:22 Procalcitonin Sent. tw5 22:22 Lactate Sent. tw5 12/13 01:26 Patient transferred, IV remains in place. tw5 Administered Medications: 12/12 18:57 Drug: NS 0.9% 1000 ml Route: IV; Rate: 1 bolus; Site: right antecubital; bell 20:00 Follow up: Response: No adverse reaction; IV Status: Completed infusion; IV Intake: tw5 1000ml 18:57 Drug: Pepcid (famotidine) 20 mg Route: IVP; Site: right antecubital; bell 18:58 Follow up: Response: No adverse reaction bell 18:58 Drug: Zofran (Ondansetron) 4 mg Route: IVP; Site: right antecubital; bell 18:58 Follow up: Response: No adverse reaction bell 22:21 Drug: NS 0.9% 1000 ml Route: IV; Rate: 1 bolus; Infused Over: 1 hrs; Site: right tw5 antecubital; Delivery: Primary tubing; 23:14 Follow up: IV Status: Completed infusion; IV Intake: 1000ml tw5 23:20 Follow up: Response: No adverse reaction; IV Status: Completed infusion; IV Intake: tw5 1000ml 23:14 Dru.375 grams of (Zosyn (piperacillin-tazobactam) 3.375 grams, NS 0.9% 100 ml) tw5 Route: IVPB; Rate: 100 mg/hr; Infused Over: 60 mins; Site: right antecubital; Delivery: Primary tubing; 12/13 00:15 Follow up: Response: No adverse reaction; IV Status: Completed infusion; IV Intake: tw5 100ml 12/12 23:15 Drug: morphine 2 mg Route: IVP; Rate: 1 mg/min; Infused Over: 2 mins; Site: right tw5 antecubital; 23:45 Follow up: Response: Pain is decreased tw5 Intake: 20:00 IV: 1000ml; Total: 1000ml. tw5 23:14 IV: 1000ml; Total: 2000ml. tw5 23:20 IV: 1000ml; Total: 3000ml. tw5 12/13 00:15 IV: 100ml; Total: 3100ml. tw5 Outcome: 12/12 22:10 ER care complete, transfer ordered by . carolyn 12/13 01:26 Transferred by ground EMS to other acute care facility: [facility]. Transfer tw5 form completed. X-rays sent w/ patient. Condition: stable Instructed on the need for transfer. 01:28 Patient left the ED. tw5 Signatures: Dispatcher [employer] EDMS Claude Turner PA PA cp Moreno, Amanda am2 Radha Ralph tw5 Au-StagerJannet RN RN ha Kirby, Tammie tk1 Ru Jimenez ab2 Corrections: (The following items were deleted from the chart) 00:15 00:10 IV is patent, is intact, with fluids infusing freely, with good blood return, tw5 tw5 00:15 12/12 19:17 General: Appears tk1 tw5 12/13 00:23 00:10 Pain: Complains of pain in head Pain does not radiate. Pain currently is 8 out of tw5 10 on a pain scale. Quality of pain is described as sharp, tw5 00:23 00:10 Neuro: Level of Consciousness is awake, alert, obeys commands, Oriented to tw5 person, place, time, Skiver Machine are equal bilaterally Moves all extremities. Gait is steady, Speech is normal, Facial symmetry appears normal, tw5 00:23 00:10 Cardiovascular: Capillary refill < 3 seconds is brisk in bilateral fingers tw5 tw5 00:23 00:10 Respiratory: Airway is patent Respiratory effort is even, unlabored, Respiratory tw5 pattern is regular, symmetrical, Breath sounds are clear tw5 00: 00:10 GI: Abdomen is round non-distended, Bowel sounds present X 4 quads. Reports lower tw5 abdominal pain, tw5 : 00:10 : No deficits noted. No signs and/or symptoms were reported regarding the tw5 genitourinary system. tw5 : 00:10 EENT: No deficits noted. No signs and/or symptoms were reported regarding the tw5 EENT system. tw5 00:10 Derm: No deficits noted. No signs and/or symptoms reported regarding the tw5 dermatologic system. tw5 : 00:10 Musculoskeletal: No deficits noted. No signs and/or symptoms reported regarding tw5 the musculoskeletal system. tw5 00:10 Derm: Reports Incision sites dry and intact. Healing. tw5 tw5
--- NOTE | 2021-12-12 22:10 | EDPHYS ---
Physician Documentation [facility] Name: Jalyn Carver Age: 31 yrs Sex: Female : 1990 Arrival Date: 12/12/2021 Time: 17:19 Bed 20 Private MD: ED Physician Luis Alberto Hurst HPI: 12/12 18:40 This 31 yrs old Female presents to ER via Wheelchair with complaints of Fever, cp Nausea/Vomiting, Headache, Post Surgical Pain. 18:40 The patient reports fever, that was measured at 99 degrees Fahrenheit. cp 18:40 Onset: The symptoms/episode began/occurred today. Associated signs and symptoms: cp Pertinent positives: abdominal pain, headache, nausea, vomiting, Pertinent negatives: diarrhea, earache, sore throat. Severity of symptoms: in the emergency department the symptoms are unchanged despite home interventions. Patient reports having right oophorectomy performed by DR Mejia [facility] 2 days ago. 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 - Social history:: Smoking status: Patient denies any tobacco usage or history of. ROS: 18:45 Eyes: Negative for injury, pain, redness, and discharge. cp 18:45 Constitutional: Negative for fever, poor PO intake. 18:45 ENT: Negative for ear pain, sore throat, difficulty swallowing, difficulty handling secretions. 18:45 Cardiovascular: Negative for chest pain, edema, palpitations. 18:45 Respiratory: Negative for cough, shortness of breath, wheezing. 18:45 Abdomen/GI: Positive for abdominal pain, nausea and vomiting, Negative for diarrhea, constipation. 18:45 : Positive for vaginal bleeding, Negative for urinary symptoms. 18:45 Neuro: Negative for altered mental status, headache, weakness. 18:45 All other systems are negative. Exam: 18:50 Constitutional: The patient appears in no acute distress, alert, awake, non-toxic, well cp developed, well nourished, uncomfortable. 18:50 Head/Face: Normocephalic, atraumatic. cp 18:50 Eyes: Periorbital structures: appear normal, Pupils: equal, round, and reactive to light and accomodation, Extraocular movements: intact throughout, Conjunctiva: normal, no exudate, no injection, Sclera: no appreciated abnormality, Lids and lashes: appear normal, bilaterally. 18:50 ENT: External ear(s): are unremarkable, Nose: is normal, Mouth: Lips: moist, Oral mucosa: pink and intact, moist, Posterior pharynx: Airway: no evidence of obstruction, patent. 18:50 Neck: ROM/movement: is normal, is supple, without pain, no range of motions limitations, no meningismus. 18:50 Chest/axilla: Inspection: normal. 18:50 Cardiovascular: Rate: tachycardic, Rhythm: regular. 18:50 Respiratory: the patient does not display signs of respiratory distress, Respirations: normal, no use of accessory muscles, no retractions, labored breathing, is not present, Breath sounds: are clear throughout, no decreased breath sounds, no stridor, no wheezing. 18:50 Abdomen/GI: Inspection: distension, that is mild, Bowel sounds: active, all quadrants, Palpation: soft, in all quadrants, moderate abdominal tenderness, in the right lower quadrant, rebound tenderness, is not appreciated, voluntary guarding, is elicited in the right lower quadrant. 18:50 Back: CVA tenderness, is absent. 18:50 Skin: cellulitis, is not appreciated, no rash present. 18:50 Neuro: Orientation: to person, place \\T\\ time. Mentation: is normal, Motor: moves all fours, strength is normal, Sensation: is normal. Vital Signs: 17:57 BP 101 / 67; Pulse 107; Resp 17; Temp 99.0(TE); Pulse Ox 99% on R/A; Weight 72.57 kg; ab2 Height 5 ft. 1 in. (154.94 cm); Pain 8/10; 19:00 BP 109 / 70 LA Supine (auto/reg); Pulse 104 MON; Resp 18 S; Temp 99.1(O); Pulse Ox 100% tw5 on R/A; Pain 8/10; 20:00 BP 101 / 60 LA Supine (auto/reg); Pulse 97 MON; Resp 20; Pulse Ox 99% on R/A; tw5 21:00 BP 113 / 73 LA Supine (auto/reg); Pulse 95 MON; Resp 18 S; Pulse Ox 99% on R/A; tw5 23:00 BP 104 / 68 LA Supine (auto/reg); Pulse 100 MON; Resp 20 S; Pulse Ox 97% on R/A; Pain tw5 02/20; 12/13 00:05 BP 99 / 67 LA Supine (auto/reg); Pulse 89; Resp 18 S; Pulse Ox 97% on R/A; tw5 12/12 17:57 Body Mass Index 30.23 (72.57 kg, 154.94 cm) ab2 MDM: 12/12 18:19 Patient medically screened. cp 21:45 Data reviewed: vital signs, nurses notes, lab test result(s), radiologic studies, CT cp scan. 21:45 Counseling: I had a detailed discussion with the patient and/or guardian regarding: the cp historical points, exam findings, and any diagnostic results supporting the discharge/admit diagnosis, lab results, radiology results, the need to transfer to another facility, continuity of care. 22:10 Physician consultation: was contacted at 22:10, regarding regarding transfer, patient's cp condition, spoke with DR Mejia and consulted with ED Physician DR Vázquez to facilitate transfer for continuity of care. 12/12 18:33 Order name: CBC with Diff; Complete Time: 19:55 cp 12/12 19:55 Interpretation: Normal except: RBC 2.80; HGB 8.1; HCT 23.5. cp 12/12 18:33 Order name: CMP; Complete Time: 19:55 cp 12/12 18:33 Order name: Lipase; Complete Time: 19:55 cp 12/12 18:33 Order name: Urine Microscopic Only; Complete Time: 19:55 cp 12/12 19:56 Interpretation: Normal except: UWBC 5-10; URBC >50; UBACT 20-50; SQEPI 5-10. cp 12/12 18:33 Order name: COVID-19/FLU A+B (Document "Date of Onset" if Symptomatic); Complete Time: cp 21:42 12/12 21:42 Interpretation: Reviewed. cp 12/12 19:01 Order name: Urine Dipstick-Ancillary; Complete Time: 19:55 EDMS 12/12 18:33 Order name: XRAY Chest (1 view) 12/12 19:25 Order name: Urine Culture EDMS 12/12 20:00 Order name: CT Head Brain wo Cont; Complete Time: 21:42 cp 12/12 21:42 Interpretation: Report reviewed. 12/12 20:00 Order name: CT Abd/Pelvis - IV Contrast Only; Complete Time: 21:42 cp 12/12 21:47 Order name: Procalcitonin 12/12 21:47 Order name: Lactate 12/12 21:47 Order name: Blood Culture Adult (2) cp 12/13 00:21 Order name: Urine --Ancillary (enter results) cs9 12/12 18:33 Order name: IV Saline Lock; Complete Time: 18:58 cp 12/12 18:33 Order name: Labs collected and sent; Complete Time: 18:58 cp 12/12 18:33 Order name: Urine Test (obtain specimen); Complete Time: 18:58 cp Administered Medications: 18:57 Drug: NS 0.9% 1000 ml Route: IV; Rate: 1 bolus; Site: right antecubital; bell 20:00 Follow up: Response: No adverse reaction; IV Status: Completed infusion; IV Intake: tw5 1000ml 18:57 Drug: Pepcid (famotidine) 20 mg Route: IVP; Site: right antecubital; bell 18:58 Follow up: Response: No adverse reaction bell 18:58 Drug: Zofran (Ondansetron) 4 mg Route: IVP; Site: right antecubital; bell 18:58 Follow up: Response: No adverse reaction bell 22:21 Drug: NS 0.9% 1000 ml Route: IV; Rate: 1 bolus; Infused Over: 1 hrs; Site: right tw5 antecubital; Delivery: Primary tubing; 23:14 Follow up: IV Status: Completed infusion; IV Intake: 1000ml tw5 23:20 Follow up: Response: No adverse reaction; IV Status: Completed infusion; IV Intake: tw5 1000ml 23:14 Dru.375 grams of (Zosyn (piperacillin-tazobactam) 3.375 grams, NS 0.9% 100 ml) tw5 Route: IVPB; Rate: 100 mg/hr; Infused Over: 60 mins; Site: right antecubital; Delivery: Primary tubing; 12/13 00:15 Follow up: Response: No adverse reaction; IV Status: Completed infusion; IV Intake: tw5 100ml 12/12 23:15 Drug: morphine 2 mg Route: IVP; Rate: 1 mg/min; Infused Over: 2 mins; Site: right tw5 antecubital; 23:45 Follow up: Response: Pain is decreased tw5 Disposition: 12/13 09:03 Co-signature as Attending Physician, Luis Alberto Hurst MD. rn Disposition Summary: 12/12/21 22:10 Transfer Ordered Transfer Location: Other Acute Care Facility cp Reason: Higher level of care cp Condition: Stable cp Problem: new cp Symptoms: have improved cp Accepting Physician: DR Mejia(12/13/21 01:28) tw5 Diagnosis - RLQ Intraperitoneal Hemmorhage cp - RLQ Intraperitoneal Hemmorhage post Right Oophrectomy cp Forms: - Medication Reconciliation Form cp - SBAR form cp Signatures: Dispatcher [employer] Luis Alberto Castro MD MD rn Page, Corey, PA PA cp Wood, Tiffany tw5 Au-StageJannet lopez RN RN ha Bleininger, Alexis ab2 Corrections: (The following items were deleted from the chart) 12/12 22:10 22:10 DR Mejia cp cp 12/13 00:23 12/12 22:10 DR Mejia cp cp 12/13 18:30 Constitutional: Negative for fever, poor PO intake, cp cp 04:12/12 18:30 Respiratory: Negative for cough, shortness of breath, wheezing, cp cp 04:12/12 18:30 Abdomen/GI: Positive for abdominal pain, nausea and vomiting, Negative for cp diarrhea, constipation, cp 12/13 00:12/12 18:30 : Positive for vaginal bleeding, Negative for urinary symptoms, cp cp 12/13 00:12/12 18:30 Eyes: Negative for injury, pain, redness, and discharge, cp cp /10 14:12/12 18:30 ENT: Negative for ear pain, sore throat, difficulty swallowing, difficulty cp handling secretions, cp 12/13 00:12/12 18:30 Cardiovascular: Negative for chest pain, edema, palpitations, cp cp 04/10 14:12/12 18:30 Neuro: Negative for altered mental status, headache, weakness, cp cp 12/13 01:26 04 18:30 All other systems are negative, cp cp 12/13 01:28 00:23 DR Mejia cp tw5
[2021-12-12] MEDS ORDERED: NA CHLORIDE 0.9% 100 ML IV ONE (22:24)
[2021-12-12] MEDS ORDERED: PIPERACIL/TAZO 3.375 GM VIAL IV ONE (22:24)
[2021-12-12] MEDS ORDERED: MORPHINE 2 MG/ML SYR ONE (23:14)
[2021-12-13 03:19] VITALS: TEMP 99.1
[2021-12-13 03:23] VITALS: O2SAT 97
[2021-12-13 03:24] VITALS: BP 99/67
--- NOTE | 2021-12-13 10:08 | RAD REPORT ---
EXAM DESCRIPTION: RAD - Chest Single View - 12/12/2021 7:21 pm CLINICAL HISTORY: nausea/vomiting COMPARISON: Portable 10/07/2015 TECHNIQUE: AP portable chest image was obtained 12/12/2021 7:21 pm . FINDINGS: Lung volumes are low and the patient is in a lordotic position. Patchy lung base opacification is present probably atelectasis. Infiltrates are lesser in likelihood. Mid and upper lung iyer are clear of any significant process. Trachea is in the midline. Heart and vasculature are normal. No pneumothorax. Minimal pleural effusio ns could be masked. No acute bony abnormality seen. No acute aortic findings suspected. The final report was delayed due to PACs and/or Fluency technical problems that existed at the time of the study or during expected/usual dictation time period. IMPRESSION: Limited portable study showing bibasilar atelectasis. Lung base infiltrate not excluded but considered lesser in likelihood.
== END 2021-12-13 01:28 ==
LOC: ER 17:14
DX: K66.1 Hemoperitoneum (principal); Z90.721 Acquired absence of ovaries, unilateral; Z20.822 Contact with and (suspected) exposure to COVID-19
CPT/HCPCS: 96365; 96361; 87040 ×2; 87088; 85025; 87086; 36415; 81025; 83605; 83690; 80053; 84145; 0240U; 70450; 74177; 71045; 96375; 99285; Q9967; J2543; J2270; J7030 ×2; J2405; 81003; 81015

== ENCOUNTER → 2023-11-01 | Emergency (ER) | payer SELFPAY ==
[~2023-11-01] MED LIST: KETOROLAC 30 MG/ML INJ ONE; NA CHLORIDE 0.9% 1,000 ML ONE
--- OUTSIDE RECORDS SUMMARY | 2023-11-01 10:17 | XMS REPORT | Continuity of Care Document ---
Author Name Unknown Address [address] [facility] [address] [place] [address] [facility] thconnect Address [address] [facility] [address] [place] [address] Care Team Providers Care [place] Name Role Phone G_Jackie Attending Clinician Unavailable G_Pappas Admitting Clinician Unavailable Payers Payer Name Policy Type Policy Number Effective Date Expirati on Date Source [facility] [place] [id number] [facility]MEDICAID REPLACEMENT - HMO) [id number] Problems Condition Name Condition Details Condition Category Status Onset Date Resolution Date Last Treatment Date Treating Clinician Comments Source History of tubal ligation History of Tubal Ligation Problem Active 12-22 00:00: 00 [facility] Sprain of anterior talofibula r ligament of left ankle, initial encounter Sprain of anterior talofibula r ligament of left ankle, initial encounter Diagnosis Active [facility] Acute left ankle pain Acute left ankle pain Diagnosis Active [facility] Social History Smoking Status Start Date Stop Date Source Never Smoker [facility] Medications Ordered Medication Name Filled Medication Name Start Date Stop Date Current Medication? Ordering Clinician Indication Dosage Frequency Signature (SIG) Comments Components Source ibuprofen 800 mg tablet Take 1 tablet every 6 hours by oral route as needed. ibuprofen 800 mg tablet Take 1 tablet every 6 hours by oral route as needed. No 1 Q6H ibuprofen 800 mg tablet Take 1 tablet every 6 hours by oral route as needed. [facility] Macrobid 100 mg capsule Take 1 capsule twice a day by oral route for 5 days. Macrobid 100 mg capsule Take 1 capsule twice a day by oral route for 5 days. No 1capsul e(s) BID Macrobid 100 mg capsule Take 1 capsule twice a day by oral route for 5 days. [facility] ondansetron 8 mg [address] ing tablet Place 1 tablet every 8 hours by translingua l route as needed. ondansetron [address] tablet Place 1 tablet every 8 hours by translingua l route as needed. No 1 Q8H ondansetro n 8 mg disintegra ting tablet Place 1 tablet every 8 hours by translingu al route as needed. [facility] Provera 10 mg tablet Take 1 tablet every day by oral route for 10 days. Provera 10 mg tablet Take 1 tablet every day by oral route for 10 days. No 1 Q1D Provera 10 mg tablet Take 1 tablet every day by oral route for 10 days. [facility] Tylenol-Cod eine #3 300 mg-30 mg tablet 1-2 p.o. q 6 hrs PRN pain Tylenol-Cod eine #3 300 mg-30 mg tablet 1-2 p.o. q 6 hrs PRN pain No Tylenol-Co deine #3 300 mg-30 mg tablet 1-2 p.o. q 6 hrs PRN pain [facility] ibuprofen ibuprofen Yes Russell Duncan not defined [facility] Vital Signs Vital Name Observation Time Observation Value Comments S ource Height 2023-05-27 00:00:00 61 [in_i] [facility] Body Weight 2023-05-27 00:00:00 144.4 [lb_av] [facility] BP Diastolic 2023-05-27 00:00:00 75 mm[Hg] [facility] BMI (Body Mass Index) 2023-05-27 00:00:00 27.3 kg/m2 [facility] BP Systolic 2023-05-27 00:00:00 110 mm[Hg] [facility] BP Diastolic 2021-12-23 00:00:00 82 mm[Hg] [facility] Height 2021-12-23 00:00:00 61 [in_i] [facility] BMI (Body Mass Index) 2021-12-23 00:00:00 31.3 kg/m2 [facility] BP Systolic 2021-12-23 00:00:00 120 mm[Hg] [facility] Body Weight 2021-12-23 00:00:00 165.7 [lb_av] [facility] BP Diastolic 2021-12-08 00:00:00 77 mm[Hg] [facility] Height 2021-12-08 00:00:00 61 [in_i] [facility] BMI (Body Mass Index) 2021-12-08 00:00:00 31.6 kg/m2 [facility] BP Systolic 2021-12-08 00:00:00 122 mm[Hg] [facility] Body Weight 2021-12-08 00:00:00 167 [lb_av] [facility] BP Diastolic 2021-10-31 00:00:00 69 mm[Hg] [facility] Height 2021-10-31 00:00:00 61 [in_i] [facility] BP Systolic 2021-10-31 00:00:00 121 mm[Hg] [facility] BP Diastolic 2021-09-16 00:00:00 74 mm[Hg] [facility] Height 2021-09-16 00:00:00 61 [in_i] [facility] BMI (Body Mass Index) 2021-09-16 00:00:00 31.4 kg/m2 [facility] BP Systolic 2021-09-16 00:00:00 127 mm[Hg] [facility] Body Weight 2021-09-16 00:00:00 166.1 [lb_av] [facility] Procedures Procedure Date / Time Performed Performing Clinician Source US, transvaginal 2023-05-27 00:00:00 [facility] Salpingectomy, Laparoscopic (Surg) 2021-12-10 00:00:00 [facility] US, transvaginal 2021-10-31 00:00:00 [facility] US, transvaginal 2021-09-16 00:00:00 [facility] Section 2015-09-18 00:00:00 [facility] Caesarean Section 2014-01-31 00:00:00 [facility] Caesarean Section 2010-05-19 00:00:00 [facility] Tubal Ligation [facility] Plan of Care Planned Activity Planned Date Details Comments Source Diagnostic Test Pending 2023-05-27 00:00:00 urinalysis, dipstick [code = urinalysis, dipstick] [facility] Instructions [facility] Encounters Start Date/Time End Date/Time Encounter Type Admission Type Attending [facility] Care Department Encounter ID Source 2023-09-24 00:00:00 2023-09-24 00:00:00 Outpatient G[facility]appas [facility] [id number] [facility] 2023-09-14 00:00:00 2023-09-14 00:00:00 Outpatient G_Pappas [facility] MMG [id number] [facility] 2023-08-10 00:00:00 2023-08-10 00:00:00 Outpatient G_Pappas [facility] MMG [id number] [facility] 2023-07-06 00:00:00 2023-07-06 00:00:00 Outpatient G_Pappas MMG MMG [id number] [facility] 2023-06-11 00:00:00 2023-06-11 00:00:00 Outpatient G_Pappas MMG MMG [id number] [facility] 2023-06-01 00:00:00 2023-06-01 00:00:00 Outpatient G_Pappas [facility] MMG [id number] [facility] 2023-06-01 00:00:00 2023-06-01 00:00:00 Outpatient G_Pappas [facility] [id number] [facility] 2023-05-27 00:00:00 2023-05-27 00:00:00 Outpatient G_Pappas MMG [facility] [id number] [facility] 2023-05-27 00:00:00 2023-05-27 00:00:00 Ottoniel Gonsales MD: [address] [place] [address], [address], [place] [address] , Ph. [phone] [facility] [id number] [facility] 2023-05-26 00:00:00 2023-05-26 00:00:00 Outpatient G_Pappas MMG MM [id number] [facility] 2022-11-30 00:00:00 2022-11-30 00:00:00 Outpatient G_Pappas MMG MM [id number] [facility] 2022-08-19 00:00:00 2022-08-19 00:00:00 Outpatient G_Pappas MMG MM [id number] [facility] 2022-07-15 00:00:00 2022-07-15 00:00:00 Outpatient G_Pappas MMG MM [id number] [facility] 2022-06-10 00:00:00 2022-06-10 00:00:00 Outpatient G_Pappas MMG MMG [id number] [facility] 2022-05-06 00:00:00 2022-05-06 00:00:00 Outpatient G_Pappas MMG MMG [id number] [facility] 2022-04-07 00:00:00 2022-04-07 00:00:00 Outpatient G_Pappas MMG MMG [id number] [facility] 2022-03-27 10:11:00 2022-03-27 10:11:00 Outpatient G_Pappas [facility]G [facility]G [id number] [facility] 2022-03-18 11:16:00 2022-03-18 11:16:00 Outpatient G_Pappas MMG MMG [id number] [facility] 2022-02-25 03:30:00 2022-02-25 03:30:00 Outpatient G_Pappas MMG MMG [id number] [facility] 2022-01-09 04:45:00 2022-01-09 04:45:00 Outpatient G_Pappas MMG MMG [id number] [facility] 2021-12-24 09:18:00 2021-12-24 09:18:00 Outpatient G_Pappas MMG MMG [id number] [facility] 2021-12-23 10:36:00 2021-12-23 10:36:00 Outpatient G_Pappas MMG MMG [id number] [facility] 2021-12-23 00:00:00 2021-12-23 00:00:00 Ottoniel Gonsales MD: [address] [address] , Ph. [phone] [facility] [id number] [facility] 2021-12-08 10:37:00 2021-12-08 10:37:00 Outpatient G_Pappas MMG MMG [id number] [facility] 2021-12-08 00:00:00 2021-12-08 00:00:00 Ottoniel Gonsales MD: [address] [address] , Ph. [phone] [facility] [id number] [facility] 2021-12-05 12:45:00 2021-12-05 12:45:00 Outpatient G_Pappas MMG MMG [id number] [facility] 2021-11-04 11:50:00 2021-11-04 11:50:00 Outpatient G_Pappas MMG MMG [id number] [facility] 2021-10-31 03:07:00 2021-10-31 03:07:00 Outpatient G_Pappas MMG MMG [id number] [facility] 2021-10-31 00:00:00 2021-10-31 00:00:00 Ottoniel Gonsales MD: [address] [place] [address] , Ph. [phone] [facility] [id number] [facility] 2021-10-27 11:03:00 2021-10-27 11:03:00 Outpatient G_Pappas MMG MMG [id number] [facility] 2021-10-13 02:02:00 2021-10-13 02:02:00 Outpatient G_Pappas MMG MMG [id number] [facility] 2021-10-08 07:07:00 2021-10-08 07:07:00 Outpatient G_Pappas MMG MMG [id number] [facility] 2021-09-16 04:36:00 2021-09-16 04:36:00 Outpatient G_Pappas MMG MMG [id number] [facility] 2021-09-16 00:00:00 2021-09-16 00:00:00 Ottoniel Gonsales MD: [address] [place] [address] , Ph. [phone] [facility] [id number] [facility] 2021-09-01 11:39:00 2021-09-01 11:39:00 Outpatient G_Pappas MMG MMG [id number] [facility] 2021-08-25 09:16:00 2021-08-25 09:16:00 Outpatient G_Pappas MMG MMG [id number] [facility] 2020-11-28 09:43:00 2020-11-28 09:43:00 Outpatient G_Pappas MMG MMG [id number] [facility] 2019-07-12 08:30:00 2019-07-12 08:30:00 Outpatient [facility] [id number] [facility] Results Test Description Test Time Test Comments Results Result Co mments Source [facility]dipstick) panel - [id number] 09:56:52* Test Item Value Reference Range Interpretation Comme nts Leukocytes (test code = Leukocytes) Negative Nitrite (test code = Nitrite) negative Urobilinogen (test code = Urobilinogen) .2 Protein (test code = Protein) Negative pH (test code = pH) 5.0 Blood (test code = Blood) Negative Specific Orford (test code = Specific Orford) 1.020 Ketone (test code = Ketone) Negative Bilirubin (test code = Bilirubin) Negative Glucose (test code = Glucose) Negative Appearance (test code = Appearance) Clear Color (test code = Color) Yellow [facility]emat[facility] panel - [id number] 06:07:00* Test Item Value Reference Range Interpretation Comme nts hemoglobin (test code = hemoglobin) 10.5 g/dL 10.5-15.7 hematocrit (test code = hematocrit) 30.7 % 34.0-50.0 L [facility] - [id number] 02:25:00* Test Item Value Reference Range Interpretation Comme nts hemoglobin (test code = hemoglobin) 9.6 g/dL 10.5-15.7 L hematocrit (test code = hematocrit) 29.3 % 34.0-50.0 L [facility] - [id number] 09:05:00* Test Item Value Reference Range Interpretation Comme nts hemoglobin (test code = hemoglobin) 9.7 g/dL 10.5-15.7 L hematocrit (test code = hematocrit) 28.7 % 34.0-50.0 L [facility] and Crossmatch panel - [id number] 08:39:00Type + Xm Pnl [facility] type and Indirect antibody screen panel - [id number] 05:25:00* Test Item Value Reference Range Interpretation Comme nts Rh [Type] in Blood (test cod e = 76846-7) 4+ ABO and Rh group panel - Blo od (test code = 77738-4) A positive [facility] Auto Differential panel - [id number] 04:50:00 * Test Item Value Reference Range Interpretation Comme nts white blood count (test code = white blood count) 8.2 K/uL 4.0-11.5 red blood count (test code = red blood count) 3.51 M/uL 3.80-5.20 L hemoglobin (test code = hemoglobin) 10.1 g/dL 10.5-15.7 hematocrit (test code = hematocrit) 30.4 % 34.0-50.0 MCV [Entitic volume] (test c ode = 14606-0) 86.6 fL 86.0-100.0 mean corpuscular hemoglobin (test code = mean corpuscular hemoglobin) 28.8 pg 26.2-33.4 mean corpuscular HGB conc (t est code = mean corpuscular HGB conc) 33.2 g/dL 30.0-34.0 red cell distribution width (test code = red cell distribution width) 12.6 % 12.0-15.5 platelet count (test code = platelet count) 233 K/uL 165-450 mean platelet volume (test c ode = mean platelet volume) 10.8 fL 9.4-12.6 Segmented neutrophils/100 leukocytes in Blood (test code = 93572-1) 83.6 % 44.4-80.1 Immature granulocytes [#/vol ume] in Blood (test code = 29656-4) 0.05 K/uL 0.00-0.03 H lymphocyte% (test code = lymphocyte%) 8.8 % 10.0-50.0 L mono % (test code = mono %) 6.9 % 3.6-12.0 eos % (test code = eos %) 0 % 0.0-5.4 Basophils/100 leukocytes in Specimen (test code = 84303-5) 0.1 % 0.1-1.2 Band form neutrophils [#/vol ume] in Blood (test code = 34070-1) 6.81 K/uL 1.56-6.13 H Lymphocytes [#/volume] in Sp ecimen by Automated count (test code = 70194-5) 0.72 K/uL 1.18-3.74 L mono # (test code = mono #) 0.56 K/uL 0.24-0.86 eos # (test code = eos #) 0.00 K/uL 0.04-0.36 L basophil # (test code = baso lizandro #) 0.01 K/uL 0.01-0.08 NRBC% (test code = NRBC%) 0 /100 WBC 0-0.2 NRBC# (test code = NRBC#) 0 K/uL [facility] W Auto Differential panel - [id number] 04:15:00 * Test Item Value Reference Range Interpretation Comme nts white blood count (test code = white blood count) 6.2 K/uL 4.0-11.5 red blood count (test code = red blood count) 2.37 M/uL 3.80-5.20 L hemoglobin (test code = hemoglobin) 6.8 g/dL 10.5-15.7 L hematocrit (test code = hematocrit) 20.7 % 34.0-50.0 L MCV [Entitic volume] (test c ode = 47012-7) 87.3 fL 86.0-100.0 mean corpuscular hemoglobin (test code = mean corpuscular hemoglobin) 28.7 pg 26.2-33.4 mean corpuscular HGB conc (t est code = mean corpuscular HGB conc) 32.9 g/dL 30.0-34.0 red cell distribution width (test code = red cell distribution width) 12.5 % 12.0-15.5 platelet count (test code = platelet count) 212 K/uL 165-450 mean platelet volume (test c ode = mean platelet volume) 10.9 fL 9.4-12.6 Segmented neutrophils/100 leukocytes in Blood (test code = 38175-8) 66.3 % 44.4-80.1 Immature granulocytes [#/vol ume] in Blood (test code = 08280-6) 0.02 K/uL 0.00-0.03 lymphocyte% (test code = lymphocyte%) 24.7 % 10.0-50.0 mono % (test code = mono %) 8.2 % 3.6-12.0 eos % (test code = eos %) 0.2 % 0.0-5.4 Basophils/100 leukocytes in Specimen (test code = 89806-4) 0.3 % 0.1-1.2 Band form neutrophils [#/vol ume] in Blood (test code = 07177-1) 4.10 K/uL 1.56-6.13 Lymphocytes [#/volume] in Sp ecimen by Automated count (test code = 89513-2) 1.53 K/uL 1.18-3.74 mono # (test code = mono #) 0.51 K/uL 0.24-0.86 eos # (test code = eos #) 0.01 K/uL 0.04-0.36 L basophil # (test code = baso lizandro #) 0.02 K/uL 0.01-0.08 NRBC% (test code = NRBC%) 0 /100 WBC 0-0.2 NRBC# (test code = NRBC#) 0 K/uL [facility] macro (dipstick) panel - [id number] 09:47:17* Test Item Value Reference Range Interpretation Comme nts Leukocytes (test code = Leukocytes) Negative Nitrite (test code = Nitrite) negative Urobilinogen (test code = Urobilinogen) .2 Protein (test code = Protein) Negative pH (test code = pH) 5.5 Blood (test code = Blood) Negative Specific Orford (test code = Specific Orford) 1.025 Ketone (test code = Ketone) Negative Bilirubin (test code = Bilirubin) Negative Glucose (test code = Glucose) Negative Appearance (test code = Appearance) Clear Color (test code = Color) Yellow [facility] macro (dipstick) panel - [id number] 09:47:17* Test Item Value Reference Range Interpretation Comme nts Leukocytes (test code = Leukocytes) Negative Nitrite (test code = Nitrite) negative Urobilinogen (test code = Urobilinogen) .2 Protein (test code = Protein) Negative pH (test code = pH) 5.5 Blood (test code = Blood) Negative Specific Orford (test code = Specific Orford) 1.025 Ketone (test code = Ketone) Negative Bilirubin (test code = Bilirubin) Negative Glucose (test code = Glucose) Negative Appearance (test code = Appearance) Clear Color (test code = Color) Yellow [facility], [id number] 09:46:00* Test Item Value Reference Range Interpretation Comme nts Test (test code = Test) negative [facility], [id number] 09:46:00* Test Item Value Reference Range Interpretation Comme nts Test (test code = Test) negative [facility] RNA [Presence] in Respiratory specimen by EUGENIE with probe [id number] 08:59:0108150-5Yxckgwrsp [facility], [id number] 09:04:00* Test Item Value Reference Range Interpretation Comme nts Choriogonadotropin (pregnanc y test) [Presence] in Urine (test code = 2106-3) negative neg [facility] Group[facility]inalysis complete panel - [id number] 09:04:00* Test Item Value Reference Range Interpretation Comme nts Color of Urine by Auto (test code = 78009-0) light yellow Appearance of Urine (test co de = 5767-9) SL cloudy clear A Glucose [Presence] in Urine by Automated test strip (test code = 41244-9) negative negative Bilirubin.total [Mass/volume ] in Urine (test code = 1978-6) negative negative Ketones [Mass/volume] in Uri ne by Automated test strip (test code = 15138-3) negative negative Specific gravity of Urine by Automated test strip (test code = 65676-2) 1.019 1.003-1.030 blood urine (test code = blo od urine) trace negative pH of Urine (test code = 2756-5) 5.500 5-9 protein urine (UA) (test cod e = protein urine (UA)) trace negative Urobilinogen [Presence] in U rine (test code = 10445-1) normal 0.2-1.0 Nitrite [Presence] in Urine by Test strip (test code = 5802-4) negative negative Leukocyte esterase [Presence ] in Urine by Automated test strip (test code = 87711-7) =3 negative H Erythrocytes [#/volume] in U rine by Automated count (test code = 798-9) =1-5 0-5 Leukocytes [#/area] in Urine sediment by Automated count (test code = 11405-0) >50 0-5 H Epithelial cells [Presence] in Urine sediment by Light microscopy (test code = 52981-1) =1-5 0-5 Bacteria identified in Urine by Culture (test code = 630-4) moderate (2 none detect H Casts [#/area] in Urine sedi ment by Automated count (test code = 08167-2) =6-10 none detect H urine culture added? (test c ode = urine culture added?) yes [facility], [id number] 09:04:00* Test Item Value Reference Range Interpretation Comme nts Choriogonadotropin (pregnanc y test) [Presence] in Urine (test code = 2106-3) negative neg [facility] complete panel - [id number] 09:04:00* Test Item Value Reference Range Interpretation Comme nts Color of Urine by Auto (test code = 79086-6) light yellow Appearance of Urine (test co de = 5767-9) SL cloudy clear A Glucose [Presence] in Urine by Automated test strip (test code = 51085-1) negative negative Bilirubin.total [Mass/volume ] in Urine (test code = 1978-6) negative negative Ketones [Mass/volume] in Uri ne by Automated test strip (test code = 27802-6) negative negative Specific gravity of Urine by Automated test strip (test code = 28928-5) 1.019 1.003-1.030 blood urine (test code = blo od urine) trace negative pH of Urine (test code = 2756-5) 5.500 5-9 protein urine (UA) (test cod e = protein urine (UA)) trace negative Urobilinogen [Presence] in U rine (test code = 97243-5) normal 0.2-1.0 Nitrite [Presence] in Urine by Test strip (test code = 5802-4) negative negative Leukocyte esterase [Presence ] in Urine by Automated test strip (test code = 48228-1) =3 negative H Erythrocytes [#/volume] in U rine by Automated count (test code = 798-9) =1-5 0-5 Leukocytes [#/area] in Urine sediment by Automated count (test code = 62557-6) >50 0-5 H Epithelial cells [Presence] in Urine sediment by Light microscopy (test code = 40574-1) =1-5 0-5 Bacteria identified in Urine by Culture (test code = 630-4) moderate (2 none detect H Casts [#/area] in Urine sedi ment by Automated count (test code = 65576-6) =6-10 none detect H urine culture added? (test c ode = urine culture added?) yes [facility] Urine by [id number] 09:04:00Bacteria Ur [facility] sensitivity [facility], [id number] 09:04:00* Test Item Value Reference Range Interpretation Comme nts Gentamicin [Susceptibility] by Minimum inhibitory concentration (RAMA) (test code = 267-5) 4 ug/mL Ampicillin [Susceptibility] by Minimum inhibitory concentration (RAMA) (test code = 28-1) <=4 Cefazolin [Susceptibility] b y Minimum inhibitory concentration (RMAA) (test code = 76-0) 8 ug/mL Trimethoprim+Sulfamethoxazol e [Susceptibility] by Minimum inhibitory concentration (RAMA) (test code = 516-5) =0.5 Tetracycline [Susceptibility ] by Minimum inhibitory concentration (RAMA) (test code = 496-0) <=2 Amoxicillin+Clavulanate [Susceptibility] by Minimum inhibitory concentration (RAMA) (test code = 20-8) =4/2 Tobramycin [Susceptibility] by Minimum inhibitory concentration (RAMA) (test code = 508-2) <=2 Nitrofurantoin [Susceptibili ty] by Minimum inhibitory concentration (RAMA) (test code = 363-2) >64 cefOXitin [Susceptibility] b y Minimum inhibitory concentration (RAMA) (test code = 116-4) <=4 levoFLOXacin [Susceptibility ] by Minimum inhibitory concentration (RAMA) (test code = 32262-8) <=0.5 cefTAZidime [Susceptibility] by Minimum inhibitory concentration (RAMA) (test code = 133-9) <=2 cefTRIAXone [Susceptibility] by Minimum inhibitory concentration (RAMA) (test code = 141-2) <=1 Ciprofloxacin [Susceptibilit y] by Minimum inhibitory concentration (RAMA) (test code = 185-9) <=0.25 Ampicillin+Sulbactam [Suscep tibility] by Minimum inhibitory concentration (RAMA) (test code = 32-3) =1/0 Ertapenem [Susceptibility] b y Minimum inhibitory concentration (RAMA) (test code = 29206-6) <=0.25 Aztreonam [Susceptibility] b y Minimum inhibitory concentration (RAMA) (test code = 44-8) <=2 Cefepime [Susceptibility] by Minimum inhibitory concentration (RAMA) (test code = 6644-9) <=1 Moxifloxacin [Susceptibility ] by Minimum inhibitory concentration (RAMA) (test code = 02102-2) <=1 Amikacin [Susceptibility] by Minimum inhibitory concentration (RAMA) (test code = 12-5) <=8 Piperacillin+Tazobactam [Susceptibility] by Minimum inhibitory concentration (RAMA) (test code = 412-7) =2/4 Ceftaroline [Susceptibility] by Minimum inhibitory concentration (RAMA) (test code = 91138-7) <=0.25 [facility], [id number] 09:04:00* Test Item Value Reference Range Interpretation Comme nts Gentamicin [Susceptibility] by Minimum inhibitory concentration (RAMA) (test code = 267-5) >8 Ampicillin [Susceptibility] by Minimum inhibitory concentration (RAMA) (test code = 28-1) >16 Cefazolin [Susceptibility] b y Minimum inhibitory concentration (RAMA) (test code = 76-0) >16 Trimethoprim+Sulfamethoxazol e [Susceptibility] by Minimum inhibitory concentration (RAMA) (test code = 516-5) =2/38 Tetracycline [Susceptibility ] by Minimum inhibitory concentration (RAMA) (test code = 496-0) >8 Amoxicillin+Clavulanate [Susceptibility] by Minimum inhibitory concentration (RAMA) (test code = 20-8) =16/8 Tobramycin [Susceptibility] by Minimum inhibitory concentration (RAMA) (test code = 508-2) 8 ug/mL Nitrofurantoin [Susceptibili ty] by Minimum inhibitory concentration (RAMA) (test code = 363-2) <=16 cefOXitin [Susceptibility] b y Minimum inhibitory concentration (RAMA) (test code = 116-4) >16 levoFLOXacin [Susceptibility ] by Minimum inhibitory concentration (RAMA) (test code = 75612-2) >4 cefTAZidime [Susceptibility] by Minimum inhibitory concentration (RAMA) (test code = 133-9) >16 cefTRIAXone [Susceptibility] by Minimum inhibitory concentration (RAMA) (test code = 141-2) >32 Ciprofloxacin [Susceptibilit y] by Minimum inhibitory concentration (RAMA) (test code = 185-9) >2 Ampicillin+Sulbactam [Suscep tibility] by Minimum inhibitory concentration (RAMA) (test code = 32-3) =16/8 Ertapenem [Susceptibility] b y Minimum inhibitory concentration (RAMA) (test code = 03326-6) <=0.25 Aztreonam [Susceptibility] b y Minimum inhibitory concentration (RAMA) (test code = 44-8) >16 Cefepime [Susceptibility] by Minimum inhibitory concentration (RAMA) (test code = 6644-9) <=1 Meropenem [Susceptibility] b y Minimum inhibitory concentration (RAMA) (test code = 6652-2) <=0.5 Moxifloxacin [Susceptibility ] by Minimum inhibitory concentration (RAMA) (test code = 18085-0) >4 Amikacin [Susceptibility] by Minimum inhibitory concentration (RAMA) (test code = 12-5) <=8 Piperacillin+Tazobactam [Susceptibility] by Minimum inhibitory concentration (RAMA) (test code = 412-7) =16/4 Ceftaroline [Susceptibility] by Minimum inhibitory concentration (RAMA) (test code = 95711-9) >1 Tigecycline [Susceptibility] by Minimum inhibitory concentration (RAMA) (test code = 43704-6) <=1 [facility] W Auto Differential panel - [id number] 08:30:00 * Test Item Value Reference Range Interpretation Comme nts white blood count (test code = white blood count) 5.5 K/uL 4.0-11.5 red blood count (test code = red blood count) 4.50 M/uL 3.80-5.20 hemoglobin (test code = hemoglobin) 12.9 g/dL 10.5-15.7 hematocrit (test code = hematocrit) 38.8 % 34.0-50.0 MCV [Entitic volume] (test c ode = 07424-2) 86.2 fL 86.0-100.0 mean corpuscular hemoglobin (test code = mean corpuscular hemoglobin) 28.7 pg 26.2-33.4 mean corpuscular HGB conc (t est code = mean corpuscular HGB conc) 33.2 g/dL 30.0-34.0 red cell distribution width (test code = red cell distribution width) 12.2 % 12.0-15.5 platelet count (test code = platelet count) 333 K/uL 165-450 mean platelet volume (test c ode = mean platelet volume) 11.1 fL 9.4-12.6 Segmented neutrophils/100 leukocytes in Blood (test code = 19561-2) 59.8 % 44.4-80.1 Immature granulocytes [#/vol ume] in Blood (test code = 31852-9) 0.02 K/uL 0.00-0.03 lymphocyte% (test code = lymphocyte%) 27.0 % 10.0-50.0 mono % (test code = mono %) 10.5 % 3.6-12.0 eos % (test code = eos %) 1.7 % 0.0-5.4 Basophils/100 leukocytes in Specimen (test code = 83746-2) 0.6 % 0.1-1.2 Band form neutrophils [#/vol ume] in Blood (test code = 84337-4) 3.27 K/uL 1.56-6.13 Lymphocytes [#/volume] in Sp ecimen by Automated count (test code = 02070-4) 1.47 K/uL 1.18-3.74 mono # (test code = mono #) 0.57 K/uL 0.24-0.86 eos # (test code = eos #) 0.09 K/uL 0.04-0.36 basophil # (test code = baso lizandro #) 0.03 K/uL 0.01-0.08 NRBC% (test code = NRBC%) 0 /100 WBC 0-0.2 NRBC# (test code = NRBC#) 0 K/uL [facility] - Serum or Plasma 2021-12-01 08:30:00* Test Item Value Reference Range Interpretation Comme nts Glucose [Mass/volume] in Ser um or Plasma (test code = 2345-7) 91 mg/dL 74-106 Urea nitrogen [Mass/volume] in Serum or Plasma (test code = 3094-0) 9 mg/dL 6-20 osmolality calculated,serum (test code = osmolality calculated,serum) 272 mOsm/kg 280-300 L creatinine (test code = creatinine) 0.58 mg/dL 0.50-0.90 glomerular filtration rate ( test code = glomerular filtration rate) >60.00 Urea nitrogen/Creatinine [Ma ss Ratio] in Serum or Plasma (test code = 3097-3) 15.5 12.0-20.0 sodium level (test code = so dium level) 137 mmol/L 135-145 potassium level (test code = potassium level) 3.7 mmol/L 3.5-5.2 chloride level (test code = chloride level) 102 mmol/L 98-108 CO2 (test code = CO2) 25 mmol/L 21-32 anion gap (test code = anion gap) 13.7 mEq/L 12.0-20.0 calcium level (test code = calcium level) 9.3 mg/dL 8.6-10.0 total protein (test code = t otal protein) 7.9 g/dL 6.6-8.7 albumin (test code = albumin) 4.6 g/dL 3.5-5.2 globulin (test code = globulin) 3.3 g/dL 1.5-4.5 A/G ratio (test code = A/G ratio) 1.4 >1.0 bilirubin,total (test code = bilirubin,total) 0.6 mg/dL 0.0-1.2 AST/SGOT (test code = AST/SGOT) 33 U/L 15-32 H Alanine aminotransferase [Enzymatic activity/volume] in Serum or Plasma (test code = 1742-6) 37 U/L 0-33 H Alkaline phosphatase [Enzyma tic activity/volume] in Serum or Plasma (test code = 6768-6) 71 U/L 35-105 [facility] - [id number] 08:30:00 * Test Item Value Reference Range Interpretation Comme nts white blood count (test code = white blood count) 5.5 K/uL 4.0-11.5 red blood count (test code = red blood count) 4.50 M/uL 3.80-5.20 hemoglobin (test code = hemoglobin) 12.9 g/dL 10.5-15.7 hematocrit (test code = hematocrit) 38.8 % 34.0-50.0 MCV [Entitic volume] (test c ode = 56108-7) 86.2 fL 86.0-100.0 mean corpuscular hemoglobin (test code = mean corpuscular hemoglobin) 28.7 pg 26.2-33.4 mean corpuscular HGB conc (t est code = mean corpuscular HGB conc) 33.2 g/dL 30.0-34.0 red cell distribution width (test code = red cell distribution width) 12.2 % 12.0-15.5 platelet count (test code = platelet count) 333 K/uL 165-450 mean platelet volume (test c ode = mean platelet volume) 11.1 fL 9.4-12.6 Segmented neutrophils/100 leukocytes in Blood (test code = 75144-4) 59.8 % 44.4-80.1 Immature granulocytes [#/vol ume] in Blood (test code = 68211-1) 0.02 K/uL 0.00-0.03 lymphocyte% (test code = lymphocyte%) 27.0 % 10.0-50.0 mono % (test code = mono %) 10.5 % 3.6-12.0 eos % (test code = eos %) 1.7 % 0.0-5.4 Basophils/100 leukocytes in Specimen (test code = 83708-5) 0.6 % 0.1-1.2 Band form neutrophils [#/vol ume] in Blood (test code = 68343-7) 3.27 K/uL 1.56-6.13 Lymphocytes [#/volume] in Sp ecimen by Automated count (test code = 27112-4) 1.47 K/uL 1.18-3.74 mono # (test code = mono #) 0.57 K/uL 0.24-0.86 eos # (test code = eos #) 0.09 K/uL 0.04-0.36 basophil # (test code = baso lizandro #) 0.03 K/uL 0.01-0.08 NRBC% (test code = NRBC%) 0 /100 WBC 0-0.2 NRBC# (test code = NRBC#) 0 K/uL [facility] - Serum or Plasma 2021-12-01 08:30:00* Test Item Value Reference Range Interpretation Comme nts Glucose [Mass/volume] in Ser um or Plasma (test code = 2345-7) 91 mg/dL 74-106 Urea nitrogen [Mass/volume] in Serum or Plasma (test code = 3094-0) 9 mg/dL 6-20 osmolality calculated,serum (test code = osmolality calculated,serum) 272 mOsm/kg 280-300 L creatinine (test code = creatinine) 0.58 mg/dL 0.50-0.90 glomerular filtration rate ( test code = glomerular filtration rate) >60.00 Urea nitrogen/Creatinine [Ma ss Ratio] in Serum or Plasma (test code = 3097-3) 15.5 12.0-20.0 sodium level (test code = so dium level) 137 mmol/L 135-145 potassium level (test code = potassium level) 3.7 mmol/L 3.5-5.2 chloride level (test code = chloride level) 102 mmol/L 98-108 CO2 (test code = CO2) 25 mmol/L 21-32 anion gap (test code = anion gap) 13.7 mEq/L 12.0-20.0 calcium level (test code = calcium level) 9.3 mg/dL 8.6-10.0 total protein (test code = t otal protein) 7.9 g/dL 6.6-8.7 albumin (test code = albumin) 4.6 g/dL 3.5-5.2 globulin (test code = globulin) 3.3 g/dL 1.5-4.5 A/G ratio (test code = A/G ratio) 1.4 >1.0 bilirubin,total (test code = bilirubin,total) 0.6 mg/dL 0.0-1.2 AST/SGOT (test code = AST/SGOT) 33 U/L 15-32 H Alanine aminotransferase [Enzymatic activity/volume] in Serum or Plasma (test code = 1742-6) 37 U/L 0-33 H Alkaline phosphatase [Enzyma tic activity/volume] in Serum or Plasma (test code = 6768-6) 71 U/L 35-105 [facility]stick[facility] - [id number] 15:46:42* Test Item Value Reference Range Interpretation Comme nts Leukocytes (test code = Leukocytes) Negative Nitrite (test code = Nitrite) negative Urobilinogen (test code = Urobilinogen) .2 Protein (test code = Protein) Negative pH (test code = pH) 6.5 Blood (test code = Blood) Negative Specific [place] (test code = Specific Orford) 1.025 Ketone (test code = Ketone) Negative Bilirubin (test code = Bilirubin) Negative Glucose (test code = Glucose) Negative Appearance (test code = Appearance) Clear Color (test code = Color) Dark Yellow [facility]
[2023-11-01 11:10] LABS: Specific Gravity 1.026 (1.005-1.030)
[2023-11-01 11:15] LABS: Specific Gravity 1.026 (1.005-1.030); Urine Bilirubin NEGATIVE (Negative); Urine Blood Negative (Negative); Urine Clarity Clear (Clear); Urine Color Light-Yellow (Yellow); Urine Glucose NEGATIVE (Negative); Urine Protein NEGATIVE (Negative); Urine Urobilinogen Normal (Normal); Urine pH 5.5 (5.0-7.0)
--- NOTE | 2023-11-01 11:38 | RAD REPORT ---
EXAM DESCRIPTION: CT - Stone Protocol - 11/01/2023 11:23 am CLINICAL HISTORY: Abdominal pain. Left flank pain COMPARISON: 2022 TECHNIQUE: Computed axial tomography of the abdomen pelvis was obtained without oral or IV contrast. Lack of IV and oral contrast limits evaluation of solid organs, appendix, bowel, and vessels. Valencia l reformatted images were obtained and reviewed. All CT scans are performed using dose optimization technique as appropriate and may include automated exposure control or mA/KV adjustment according to patient size. FINDINGS: A renal calculus is not seen. An ureteral calculus is not noted. A bladder calculus is not present. No hydronephrosis is The liver, spleen, pancreas and adrenals appear grossly normal There is no evidence of diverticulitis. No adnexal mass. Moderate amount stool within the colon IMPRESSION: Negative for a genitourinary calculus Moderate amount of stool within the colon
[2023-11-01 11:48] LABS: Absolute Lymphocytes (CBC) 1.7 K/uL (0.7-4.9); Hematocrit 29.5 % (36.0-45.0); Lymphocytes % 24.4 % (15.3-44.8); MCV 73.5 fL (80-100); MPV 8.9 fL (7.6-11.3); Platelets 260 thou/uL (152-406); RBC Red Blood Cell Count 4.02 M/uL (3.86-4.86)
[2023-11-01 12:20] LABS: Albumin 3.3 g/dL (3.4-5.0); Bilirubin Total 0.3 mg/dL (0.2-1.0); Potassium 3.6 mEq/L (3.5-5.1); Protein, Total 7.1 g/dL (6.4-8.2)
--- NOTE | 2023-11-01 13:29 | RAD REPORT ---
EXAM DESCRIPTION: US - Pelvis Complete - 11/01/2023 12:37 pm CLINICAL HISTORY: left flank pain COMPARISON: Pelvis Complete dated 08/24/2021 TECHNIQUE: Sonographic grayscale and color flow images of the pelvis were obtained. FINDINGS: The uterus is normal in size, shape and echotexture. The uterus measures 10.7 cm in length . The endometrial stripe is thickened, measuring 13 mm, with no focal abnormality. Trace fluid seen socorro ng the cervical canal. Right ovary/adnexal region obscured by over shadowing bowel. Left ovary measures 4.0 x 3.1 x 3.2 cm, and demonstrates normal-appearing peripheral follicles. No suspicious adnexal masses. Normal Doppler blood flow was demonstrated to both ovaries. No significant pelvic ascites. IMPRESSION: Prominent endometrial stripe, with no focal endometrial lesion, correlate with menstrual phase. Limited evaluation due to nonvisualization of the right ovary. No other suspicious adnexal abnormalit y.
--- NOTE | 2023-11-01 13:56 | EDPHYS ---
Physician Documentation [facility] Name: Jalyn Carver Age: 33 yrs Sex: Female : 1990 Arrival Date: 11/01/2023 Time: 10:12 Bed 16 Private MD: Ottoniel Mejia ED Physician Wilmer Farrar HPI: 11/01 10:45 This 33 yrs old Female presents to ER via Ambulatory with complaints of Flank cp Pain, Back Pain. 10:45 The patient complains of pain in the left lower flank. The pain does not radiate. cp Onset: The symptoms/episode began/occurred this morning. 10:45 Associated signs and symptoms: Pertinent positives: nausea, abdominal "bloating" since cp last week, Pertinent negatives: diarrhea, dysuria, fever, hematuria. Severity of pain: in the emergency department the pain is unchanged despite home interventions. 10:45 Patient reports history of ovarian cysts in the past and concerned that cyst may have cp gotten larger. PUTTIER: 13:49 LMP 10/07/2023, unknown me1 Historical: - Allergies: 10:39 No Known Allergies; ll1 - PSHx: 10:32 section; R ovary removal; ll1 - Immunization history:: Adult Immunizations up to date. - Social history:: Smoking status: Patient denies any tobacco usage or history of. ROS: 10:50 Constitutional: Negative for body aches, chills, fever, poor PO intake, cp 10:50 Eyes: Negative for injury, pain, redness, and discharge, cp 10:50 ENT: Negative for drainage from ear(s), ear pain, sore throat, difficulty swallowing, difficulty handling secretions, 10:50 Respiratory: Negative for cough, shortness of breath, wheezing, 10:50 Abdomen/GI: Positive for abdominal pain, nausea, abdominal distension, Negative for vomiting, diarrhea, constipation, black/tarry stool, rectal bleeding, 10:50 Back: Negative for pain at rest, pain with movement, 10:50 : Negative for urinary symptoms, 10:50 Neuro: Negative for altered mental status, dizziness, headache, weakness, 10:50 All other systems are negative, Exam: 10:55 Constitutional: The patient appears in no acute distress, alert, awake, non-toxic, well cp developed, well nourished, 10:55 Head/Face: Normocephalic, atraumatic. cp 10:55 Eyes: Periorbital structures: appear normal, Conjunctiva: normal, no exudate, no injection, Sclera: no appreciated abnormality, Lids and lashes: appear normal, bilaterally, 10:55 ENT: External ear(s): are unremarkable, Nose: is normal, Mouth: Lips: moist, Oral mucosa: pink and intact, moist, Posterior pharynx: Airway: no evidence of obstruction, patent, Voice: is normal, 10:55 Chest/axilla: Inspection: normal, 10:55 Cardiovascular: Rate: normal, Rhythm: regular, 10:55 Respiratory: the patient does not display signs of respiratory distress, Respirations: normal, no use of accessory muscles, no retractions, labored breathing, is not present, Breath sounds: are clear throughout, no decreased breath sounds, no stridor, no wheezing, 10:55 Abdomen/GI: Inspection: abdomen appears normal, Bowel sounds: active, all quadrants, Palpation: soft, in all quadrants, mild abdominal tenderness, in the left lower lateral abdomen, rebound tenderness, is not appreciated, involuntary guarding, is not appreciated, 10:55 Back: CVA tenderness, is absent, 10:55 Skin: no rash present. Vital Signs: 10:39 BP 118 / 75; Pulse 83; Resp 16; Temp 98.5(O); Pulse Ox 100% on R/A; Weight 66.22 kg; ll1 Height 5 ft. 1 in. ; Pain 5/10; 11:28 BP 108 / 66; Pulse 81; Resp 17 S; Pulse Ox 100% on R/A; kc6 12:30 BP 106 / 76; Pulse 86; Resp 18; Pulse Ox 95% on R/A; me1 12:45 BP 108 / 74; Pulse 76; Resp 16; Pulse Ox 100% on R/A; me1 14:18 BP 103 / 65; Pulse 81; Resp 16; Pulse Ox 100% ; me1 10:39 Body Mass Index 27.58 (66.22 kg, 154.94 cm) ll1 10:39 Pain Scale: Adult ll1 MDM: 10:38 Patient medically screened. cp 13:55 Data reviewed: vital signs, nurses notes, lab test result(s), radiologic studies, CT cp scan, plain films, and as a result, I will discharge patient. 13:55 Differential diagnosis: nephrolithiasis, pyelonephritis, UTI, diverticulitis, ovarian cp cyst. I considered the following discharge prescriptions or medication management in the emergency department Medications were administered in the Emergency Department. See MAR. Response to treatment: the patient's symptoms have mildly improved after treatment, and as a result, I will discharge patient. Special discussion: Based on the patient's Hx, exam, and Dx evaluation, there is no indication for emergent surgery or inpatient Tx. It is understood by the patient/guardian that if the Sx's persist or worsen they need to return immediately for re-evaluation. 11/01 10:45 Order name: CBC with Diff; Complete Time: 12:35 11/01 12:36 Interpretation: Normal except: HGB 9.7; HCT 29.5; MCV 73.5; MCH 24.2. 11/01 10:45 Order name: CMP; Complete Time: 12:35 11/01 12:36 Interpretation: Normal except: CL 109; AST 12; CA 7.9; ALB 3.3; GLOB 3.8; A/G 0.9. 11/01 10:45 Order name: Lipase; Complete Time: 12:35 11/01 12:36 Interpretation: Reviewed. 11/01 10:45 Order name: Test, Urine; Complete Time: 11:38 11/01 11:39 Interpretation: Reviewed. 11/01 10:45 Order name: Urinalysis w/ reflexes; Complete Time: 11:38 11/01 11:39 Interpretation: Reviewed. 11/01 10:45 Order name: CT Stone Protocol; Complete Time: 11:38 11/01 11:40 Order name: US Pelvis Complete; Complete Time: 13:44 11/01 13:45 Interpretation: Report reviewed. 11/01 10:45 Order name: IV Saline Lock; Complete Time: 11:06 11/01 10:45 Order name: Labs collected and sent; Complete Time: 11:06 11/01 11:23 Order name: Labs - recollect needed: recollect light green and lavender top; Complete bd Time: 11:35 Administered Medications: 11:06 Drug: NS 0.9% IV 1000 ml IV at 1 bolus Per protocol; 1000 mL bolus Route: IV; Rate: 1 kc6 bolus; Site: left antecubital; 13:47 Follow up: IV Status: Infusion continued me1 11:06 Drug: TORadol - Ketorolac IVP 15 mg IVP once Route: IVP; Site: left antecubital; kc6 11:30 Follow up: Response: No adverse reaction; Pain is decreased me1 Disposition: 17:30 Co-signature as Attending Physician, Wilmer Farrar MD I reviewed the patient's care rt provided by the Advanced Practice Provider and agree with the diagnosis and treatment plan. Disposition Summary: 11/01/23 13:56 Discharge Ordered Notes: Location: Home cp Problem: new cp Symptoms: have improved cp Condition: Stable cp Diagnosis - Lower abdominal pain, unspecified cp Followup: cp - With: Private Physician - When: 2 - 3 days - Reason: Worsening of condition Discharge Instructions: - Discharge Summary Sheet cp - Abdominal Pain, Adult cp - Form - Excuse from Work, School, or Physical Activity cp Forms: - Medication Reconciliation Form cp - Thank You Letter cp - Antibiotic Education cp - Prescription Opioid Use cp - Patient Portal Instructions cp - Leadership Thank You Letter cp Prescriptions: - Ibuprofen 800 mg Oral Tablet - take 1 tablet ORAL route every 8 hours As needed take with food; 30 tablet; cp Refills: 0, Product Selection Permitted Signatures: Dispatcher [employer] Eduarda Will Corey, PA PA cp Nelson Aguilar RN RN ll1 Kimberly Rothman RN RN kc6 Wilmer Farrar MD MD rt Melanie Ray RN me1
--- NOTE | 2023-11-01 13:56 | ER ---
Nurse's Notes [facility] Name: Jalyn Carver Age: 33 yrs Sex: Female : 1990 Arrival Date: 11/01/2023 Time: 10:12 Bed 16 Private MD: Ottoniel Mejia Diagnosis: Lower abdominal pain, unspecified Presentation: 11/01 10:32 Method Of Arrival: Ambulatory ll1 10:32 Acuity: ABDIEL 3 ll1 10:39 Chief complaint: Patient states: Has had nausea since Wednesday of last week. Bloating ll1 with nausea Wednesday/Wednesday. L flank pain started today. No fever or urinary symptoms reported. Coronavirus screen: Client denies travel out of the [place] in the last 14 days. At this time, the client does not indicate any symptoms associated with coronavirus-19. Ebola Screen: Patient denies travel to an Ebola-affected area in the 21 days before illness onset. Initial Sepsis Screen: Does the patient meet any 2 criteria? No. Patient's initial sepsis screen is negative. Initial Sepsis Screen: Does the patient have a suspected source of infection? No. Patient's initial sepsis screen is negative. Risk Assessment: Do you want to hurt yourself or someone else? Patient reports no desire to harm self or others. Onset of symptoms was October 27, 2023. 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 - Social history:: Smoking status: Patient denies any tobacco usage or history of. Screenin:27 [facility] ED Fall Risk Assessment (Adult) History of falling in the last 3 months, kc6 including since admission No falls in past 3 months (0 pts) Confusion or Disorientation No (0 pts) Intoxicated or Sedated No (0 pts) Impaired Gait No (0 pts) Mobility Assist Device Used No (0 pt) Altered Elimination No (0 pt) Score/Fall Risk Level 0 - 2 = Low Risk. Abuse screen: Denies threats or abuse. Denies injuries from another. Nutritional screening: No deficits noted. Tuberculosis screening: No symptoms or risk factors identified. Assessment: 11:27 General: Appears in no apparent distress. comfortable, well groomed, well developed, kc6 Behavior is calm, cooperative, appropriate for age. Pain: Complains of pain in back, left flank Pain currently is 6 out of 10 on a pain scale. Neuro: Level of Consciousness is awake, alert, obeys commands, Oriented to person, place, time, situation, Appropriate for age. Cardiovascular: Capillary refill < 3 seconds. Respiratory: Airway is patent Trachea midline Respiratory effort is even, unlabored, Respiratory pattern is regular, symmetrical. GI: Reports nausea, Patient currently denies diarrhea, vomiting. : No signs and/or symptoms were reported regarding the genitourinary system. EENT: No signs and/or symptoms were reported regarding the EENT system. Derm: No signs and/or symptoms reported regarding the dermatologic system. Skin is intact, is healthy with good turgor, Skin is pink, warm \T\ dry. Musculoskeletal: No signs and/or symptoms reported regarding the musculoskeletal system. Circulation, motion, and sensation intact. Capillary refill < 3 seconds, Range of motion: intact in all extremities. Vital Signs: 10:39 BP 118 / 75; Pulse 83; Resp 16; Temp 98.5(O); Pulse Ox 100% on R/A; Weight 66.22 kg; ll1 Height 5 ft. 1 in. ; Pain 5/10; 11:28 BP 108 / 66; Pulse 81; Resp 17 S; Pulse Ox 100% on R/A; kc6 12:30 BP 106 / 76; Pulse 86; Resp 18; Pulse Ox 95% on R/A; me1 12:45 BP 108 / 74; Pulse 76; Resp 16; Pulse Ox 100% on R/A; me1 14:18 BP 103 / 65; Pulse 81; Resp 16; Pulse Ox 100% ; me1 10:39 Body Mass Index 27.58 (66.22 kg, 154.94 cm) ll1 10:39 Pain Scale: Adult ll1 ED Course: 10:16 Patient arrived in ED. mr 10:16 Ottoniel Mejia is Private Physician. mr 10:26 Claude Turner PA is PHCP. cp 10:26 Wilmer Farrar MD is Attending Physician. cp 10:32 Triage completed. ll1 10:32 Arm band placed on Patient placed in an exam room, on a stretcher. ll1 10:47 Kimberly Rothman, RN is Primary Nurse. kc6 11:06 Inserted saline lock: 20 gauge in left antecubital area, using aseptic technique. Blood kc6 collected. Patient maintains SpO2 saturation greater than 95% on room air. 11:23 CT Stone Protocol In Process Unspecified. EDMS 11:27 Patient has correct armband on for positive identification. Bed in low position. Call kc6 light in reach. Side rails up X 1. Client placed on continuous cardiac and pulse oximetry monitoring. NIBP monitoring applied. 12:39 US Pelvis Complete In Process Unspecified. EDMS 13:49 Provided Education on: POC. Verbalized understanding . me1 13:49 No provider procedures requiring assistance completed. me1 14:22 IV discontinued, intact, bleeding controlled, No redness/swelling at site. Pressure me1 dressing applied. Administered Medications: 11:06 Drug: NS 0.9% IV 1000 ml IV at 1 bolus Per protocol; 1000 mL bolus Route: IV; Rate: 1 kc6 bolus; Site: left antecubital; 13:47 Follow up: IV Status: Infusion continued me1 11:06 Drug: TORadol - Ketorolac IVP 15 mg IVP once Route: IVP; Site: left antecubital; kc6 11:30 Follow up: Response: No adverse reaction; Pain is decreased me1 Medication: 13:49 VIS not applicable for this client. me1 Outcome: 13:56 Discharge ordered by . cp 14:22 Discharged to home ambulatory, me1 14:22 Condition: stable 14:22 Discharge instructions given to patient, Instructed on discharge instructions, follow up and referral plans. medication usage, Demonstrated understanding of instructions, follow-up care, medications, 14:23 Patient left the ED. me1 Signatures: Dispatcher [employer] EDMS KrausePrincess morataya, Reg Reg mr Claude Turner PA PA Nelson Ford RN RN 1 Kimberly Rothman, VIRI MEREDITH kc6 Melanie Ray RN RN me1
[2023-11-01 14:46] VITALS: TEMP 98.5; O2SAT 100
[2023-11-01 15:12] VITALS: BP 103/65
== END ==
LOC: ER 10:12
DX: R10.32 Left lower quadrant pain (principal)
CPT/HCPCS: 36415; 74176; 76377; 76856; 80053; 81003; 81025; 83690; 85025; J7030